=== PATIENT | male | born 1955 | race Caucasian/White ===

== ENCOUNTER 2017-05-22 13:48 | Emergency (ER) | payer BC, MEDICAID ==
--- NOTE | 2017-05-22 14:16 | ER Document Report ---
ED Medical Screen (RME) - General Chief Complaint: Weakness Stated Complaint: WEAKNESS Time Seen by Provider: 05/22/17 14:13 Notes: Patient presents from Dr. Campos's office. Dr. Campos felt that the patient was having unstable angina. Patient states he did have some mild chest pain yesterday for which he took nitroglycerin. He denies chest pain currently. He states he has had some intermittent shortness of breath. He also states he has had swelling of all extremities. Comes with a packet of information from Dr. Campos's office. Dr. Campos recommend the patient see his vacuum worker. TRAVEL OUTSIDE OF THE [place] IN LAST 30 DAYS: No - Related Data Allergies/Adverse Reactions: No Known Allergies Allergy (Unverified 05/22/17 14:03) Past Medical History Renal/ Medical History: Denies: Hx Peritoneal Dialysis Physical Exam - Vital signs Vitals: Temp Pulse Resp BP Pulse Ox 97.6 F 70 18 166/72 H 98 05/22/17 14:01 05/22/17 14:01 05/22/17 14:01 05/22/17 14:01 05/22/17 14:01 Course - Vital Signs Vital signs: Temp Pulse Resp BP Pulse Ox 97.6 F 70 18 166/72 H 98 05/22/17 14:01 05/22/17 14:01 05/22/17 14:01 05/22/17 14:01 05/22/17 14:01
[2017-05-22 15:14] LABS: APPEARANCE,URINE CLEAR; BILIRUBIN,URINE NEGATIVE (NEGATIVE); GLUCOSE, URINE >=500 mg/dL (NEGATIVE); KETONES,URINE NEGATIVE (NEGATIVE); LEUKOCYTE ESTERASE,URINE NEGATIVE (NEGATIVE); NITRITE,URINE NEGATIVE (NEGATIVE); PROTEIN,URINE NEGATIVE (NEGATIVE); URINE SPECIFIC GRAVITY 1.021; UROBILINOGEN,URINE NEGATIVE mg/dL (<2.0)
[2017-05-22 15:21] LABS: ABSOLUTE BASOPHILS # (AUTO) 0.1 10^3/uL (0.0-0.2); ABSOLUTE EOSINOPHILS # (AUTO) 0.3 10^3/uL (0.0-0.6); ABSOLUTE LYMPHOCYTES (AUTO) 1.6 10^3/uL (0.5-4.7); ABSOLUTE MONOCYTES (AUTO) 0.6 10^3/uL (0.1-1.4); ABSOLUTE NEUT (AUTO) 5.3 10^3/uL (1.7-8.2); BASOPHILS % (AUTO) 0.8 % (0-2); EOSINOPHILS % (AUTO) 3.7 % (0-6); HEMATOCRIT 42.4 % (37.9-51.0); HEMOGLOBIN 14.5 g/dL (13.5-17.0); HGB HCT DIFFERENCE 1.1; LYMPHOCYTES % (AUTO) 20.2 % (13-45); MEAN CORPUSCULAR HEMOGLOBIN 31.7 pg (27.0-33.4); MEAN CORPUSCULAR HGB CONC 34.1 g/dL (32.0-36.0); MEAN CORPUSCULAR VOLUME 93 fl (80-97); MONOCYTES % (AUTO) 7.6 % (3-13); RED BLOOD COUNT 4.57 10^6/uL (4.35-5.55); RED CELL DISTRIBUTION WIDTH 14.2 % (11.5-14.0); SEGMENTED NEUTROPHILS % (AUTO) 67.7 % (42-78); WHITE BLOOD COUNT 7.9 10^3/uL (4.0-10.5)
[2017-05-22 15:38] LABS: ALANINE AMINOTRANSFERASE 39 U/L (21-72); ALBUMIN 4.1 g/dL (3.5-5.0); ALKALINE PHOSPHATASE 106 U/L (38-126); ANION GAP 10 (5-19); ASPARTATE AMINO TRANSFERASE 32 U/L (17-59); BILIRUBIN,DIRECT 0.3 mg/dL (0.0-0.4); BILIRUBIN,TOTAL 0.8 mg/dL (0.2-1.3); BLOOD UREA NITROGEN 16 mg/dL (7-20); CALCIUM 9.7 mg/dL (8.4-10.2); CARBON DIOXIDE 28 mmol/L (22-30); CHLORIDE 103 mmol/L (98-107); CREATININE RESULT 1.24 mg/dL (0.52-1.25); GLUCOSE 343 mg/dL (75-110); POTASSIUM 4.9 mmol/L (3.6-5.0); SODIUM 140.9 mmol/L (137-145); TOTAL PROTEIN 6.8 g/dL (6.3-8.2)
--- NOTE | 2017-05-22 16:12 | RADIOLOGY REPORT (SQ) ---
EXAM DESCRIPTION: CHEST SINGLE VIEW COMPLETED DATE/TIME: 05/22/2017 4:03 pm REASON FOR STUDY: sob/cp COMPARISON: None. EXAM PARAMETERS: NUMBER OF VIEWS: One view. TECHNIQUE: Single frontal radiographic view of the chest acquired. RADIATION DOSE: NA LIMITATIONS: None. FINDINGS: LUNGS AND PLEURA: No opacities, masses or pneumothorax. No pleural effusion. MEDIASTINUM AND HILAR STRUCTURES: No masses. Contour normal. HEART AND VASCULAR STRUCTURES: Heart upper limits of normal in size. Normal vasculature. BONES: No acute findings. HARDWARE: Sternotomy wires and surgical clips. OTHER: No other significant finding. IMPRESSION: NO ACUTE RADIOGRAPHIC FINDING IN THE CHEST. TECHNICAL DOCUMENTATION: JOB ID: [id number]
--- NOTE | 2017-05-22 16:24 | EKG REPORT ---
SEVERITY:- ABNORMAL ECG - SINUS RHYTHM NONSPECIFIC T ABNORMALITIES, DIFFUSE LEADS : Confirmed by: Elli Bartholomew MD 22-May-2017 16:23:26
--- NOTE | 2017-05-22 16:28 | ER Document Report ---
ED Cardiac - General Chief Complaint: Weakness Stated Complaint: WEAKNESS Time Seen by Provider: 05/22/17 14:13 Mode of Arrival: Ambulatory Information source: Patient - TRAVEL OUTSIDE OF THE [place] IN LAST 30 DAYS: No - Related Data Allergies/Adverse Reactions: No Known Allergies Allergy (Unverified 05/22/17 14:03) Home Medications: Current Home Medications Lisinopril [Lisinopril] 5 mg PO DAILY 05/22/17 [History] Ranolazine [Ranexa] 5 PO 05/22/17 [History] Past Medical History - General Information source: Patient - , Relative - Social History Smoking Status: Never Smoker Frequency of alcohol use: None Drug Abuse: None Family History: Reviewed & Not Pertinent - Past Medical History Cardiac Medical History: Reports: Hx Heart Attack, Hx Hypercholesterolemia Endocrine Medical History: Reports: Hx Diabetes Mellitus Type 2 Renal/ Medical History: Denies: Hx Peritoneal Dialysis Psychiatric Medical History: Reports: Hx Depression Past Surgical History: Reports: Hx Appendectomy, Hx Cardiac Surgery - CABG - Immunizations Hx Diphtheria, Pertussis, Tetanus Vaccination: Yes Review of Systems - Review of Systems Constitutional: No symptoms reported EENT: No symptoms reported Cardiovascular: Chest pain - Plan of lower extremity edema and chest pain for 30 this morning resolved with 1 nitroglycerin, Edema Respiratory: No symptoms reported Gastrointestinal: No symptoms reported Genitourinary: No symptoms reported Male Genitourinary: No symptoms reported - Weakness Skin: No symptoms reported Neurological/Psychological: No symptoms reported Physical Exam - Vital signs Vitals: Temp Pulse Resp BP Pulse Ox 97.6 F 70 18 166/72 H 98 05/22/17 14:01 05/22/17 14:01 05/22/17 14:01 05/22/17 14:01 05/22/17 14:01 - General General appearance: Appears well, Alert - Respiratory Respiratory status: No respiratory distress. No: Respiratory distress Chest status: No: Accessory muscle use Breath sounds: Normal Chest palpation: Normal - Cardiovascular Rhythm: Regular Heart sounds: Normal auscultation Murmur: No Pulses: Normal: Brachial, Radial, Carotid, Femoral, Popliteal, Posterior tibial , Dorsalis pedis - Back Back: Normal, Nontender - Extremities General upper extremity: Normal inspection - With 2+ pitting edema symmetrical bilaterally no calf tenderness swelling good pulses and perfusion no acute evidence of DVT. Calf: Normal - Neurological Neuro grossly intact: Yes Cognition: Normal Course - Re-evaluation Re-evalutation: 05/22/17 16:26 Presents to the emergency department sent from his primary care physician's office with an 8 page dictated note that is very think the history of open heart surgery in 2004 and had a heart catheterization in 2016 which showed 2 patent vessels and one blockage that was managed conservatively with medical management. He is currently taking Ranexa and aspirin. His centrifugal drier operator is been more nor. Patient states he has had some lower extremity edema that he believes is due to the heat. He denies any difficulty breathing shortness of breath or history of congestive heart failure. He denies any history of kidney problems cough or upper respiratory illness. Patient states that he gets chest pain and proximal approximately 2-3 times a week at which point he takes one nitroglycerin and it is resolved he had chest pain this morning at 4:30 AM took one nitroglycerin and it resolved. He said it was unchanged in character quality frequency and duration his previous episodes. There has not been new exertional component to it he is chest pain-free since 430 this morning with the one nitroglycerin. Terms of the peripheral edema he has trace 2+ pitting edema I do not appreciate any pitting edema in the upper extremities his chest x -ray is negative his kidney function is normal his EKG is nonacute and his troponin is negative. I called his cardiology office and Lorin spoke to Dr. Gilbert's who agreed the patient to be discharged home and stated he would see him in the office at 9:00 tomorrow morning. Patient is discussed this with him and his and they are very pleased about this does not want to stay in the hospital. And we specifically discussed reasons for ED return sooner - Vital Signs Vital signs: Temp Pulse Resp BP Pulse Ox 97.6 F 70 18 166/72 H 98 05/22/17 14:01 05/22/17 14:01 05/22/17 14:01 05/22/17 14:01 05/22/17 14:01 - Laboratory Result Diagrams: 05/22/17 15:12 05/22/17 15:12 Laboratory results interpreted by me: 05/22/17 05/22/17 05/22/17 15:01 15:12 15:12 RDW 14.2 H Est GFR (Non-Af Amer) 59 L Glucose 343 H Urine Glucose (UA) >=500 H Discharge - Discharge Clinical Impression: Generalized weakness, Peripheral edema, chest pain resolved Condition: Stable Disposition: HOME, SELF-CARE Additional Instructions: Edema, Peripheral You have swelling in your legs. This is called peripheral edema. It can be caused by "leaky capillaries," inflammation, disease of the leg veins, or excess salt and water in your body. Edema may be a sign of heart, kidney, or liver disease. A medical evaluation can determine if there is a serious underlying cause for your edema. Avoid prolonged standing. If you must sit for a long time, occasionally get up and walk around or elevate your legs. Support stockings can be helpful in limiting swelling. Often diuretic or water pills are used to remove excess salt and water from your body. Call the doctor or return if you develop increased swelling, pain, or redness, shortness of breath, chest pain, or any other significant change. Chest Pain resolved Scribe experiencing chest pain 2-3 times a week which gets relieved with nitro. He had an episode of that today he reported around 430 which was relieved with one nitroglycerin you are denying any chest pain here your EKG is nonacute your cardiac enzymes are negative I spoke with your centrifugal drier operator Dr. jaffe at [place] who agrees that you can be discharged today and will see you in the office at 9:00 tomorrow morning return for increasing worsening or new symptoms
[2017-05-22 16:52] VITALS: BP 145/85
== END 2017-05-22 16:52 | disposition home or self-care (01) ==
LOC: ER 13:48
DX: R53.1 Weakness (principal); R60.0 Localized edema; R07.9 Chest pain, unspecified; I25.2 Old myocardial infarction; E11.9 Type 2 diabetes mellitus without complications; Z95.1 Presence of aortocoronary bypass graft; Z79.82 Long term (current) use of aspirin; Z79.899 Other long term (current) drug therapy
CPT/HCPCS: 36415; 71010; 80053; 81001; 84484; 85025; 93005; 93010; 99285

== ENCOUNTER 2018-05-21 07:39 | Day surgery (SDC) | payer BC, MEDICARE ==
[~2018-05-21 07:39] MED LIST: CHONDR SU A NA/HYALUR INTRAOC KIT (SURGICARE) ONE; EPINEPHRINE INJ/PF 1 MG/1 ML AMPULE ONE; KETOROLAC TROMETHAMINE 0.45% 4 DROP/0.4 ML DROPERETTE OD PRN; LIDOCAINE 1% INJ-PF (10 MG/ML) 30 ML SDV ONE
[2018-05-21] MEDS: TETRACAINE HCL 0.5% OPH SOLN 0.6 ML DROPERETTE OD PRN ×3 (08:13→08:38)
[2018-05-21] MEDS: TROPICAMIDE 1% OPH SOLN 3 ML OD PRN ×3 (08:13→08:35)
[2018-05-21] MEDS: BESIFLOXACIN HCL 0.6% OPH SUSP 5 ML BOTTLE OD PRN ×4 (08:14→09:03)
[2018-05-21] MEDS: CYCLOPENTOLATE 0.2%/PHENYLEPHRINE 1% OPH SOLN 2 ML OD PRN ×3 (08:14→08:35)
[2018-05-21] MEDS ORDERED: FENTANYL CITRATE INJ/PF 100 MCG/2 ML AMPUL ONE (08:24)
[2018-05-21] MEDS ORDERED: MIDAZOLAM 2 MG/2 ML INJ ONE (08:24)
[2018-05-21] MEDS: TOBRAMYCIN SULFATE/DEXAMETH OPH OINTMENT 3.5 GM ONE ×2 (09:03)
== END 2018-05-21 10:02 | disposition home or self-care (01) ==
LOC: SC 07:39
PROVIDERS: ATTEND Ophthalmology
DX: H25.11 Age-related nuclear cataract, right eye (principal); H40.1111 Primary open-angle glaucoma, right eye, mild stage; E11.9 Type 2 diabetes mellitus without complications; I48.91 Unspecified atrial fibrillation; I10 Essential (primary) hypertension; E78.00 Pure hypercholesterolemia, unspecified; M19.90 Unspecified osteoarthritis, unspecified site; I25.10 Atherosclerotic heart disease of native coronary artery without angina pectoris; Z79.82 Long term (current) use of aspirin; Z79.899 Other long term (current) drug therapy; Z79.01 Long term (current) use of anticoagulants; Z79.4 Long term (current) use of insulin
CPT/HCPCS: 66984; 0191T; 82962; C1783; V2630; J2250; J3490 ×3; A9270; J0171; J3010; 142

== ENCOUNTER 2018-06-04 08:34 | Day surgery (SDC) | payer BC, MEDICARE ==
[~2018-06-04 08:34] MED LIST changes: -KETOROLAC TROMETHAMINE 0.45% 4 DROP/0.4 ML DROPERETTE OD PRN; +KETOROLAC TROMETHAMINE 0.45% 4 DROP/0.4 ML DROPERETTE OS PRN; +TOBRAMYCIN SULFATE/DEXAMETH OPH OINTMENT 3.5 GM ONE
[2018-06-04] MEDS: TETRACAINE HCL 0.5% OPH SOLN 0.6 ML DROPERETTE OS PRN ×3 (09:01→09:51)
[2018-06-04] MEDS: CYCLOPENTOLATE 0.2%/PHENYLEPHRINE 1% OPH SOLN 2 ML OS PRN ×3 (09:01→09:29)
[2018-06-04] MEDS: TROPICAMIDE 1% OPH SOLN 3 ML OS PRN ×3 (09:02→09:29)
[2018-06-04] MEDS: BESIFLOXACIN HCL 0.6% OPH SUSP 5 ML BOTTLE OS PRN ×3 (09:02→09:55)
[2018-06-04] MEDS ORDERED: MIDAZOLAM 2 MG/2 ML INJ ONE ×2 (09:20→09:36)
[2018-06-04] MEDS ORDERED: INSULIN REG, HUMAN 100 UNIT/ML 3 ML VIAL (PYX) ONE (09:29)
== END 2018-06-04 10:51 | disposition home or self-care (01) ==
LOC: SC 08:34
PROVIDERS: ATTEND Ophthalmology
DX: H25.12 Age-related nuclear cataract, left eye (principal); H40.1121 Primary open-angle glaucoma, left eye, mild stage; Z98.41 Cataract extraction status, right eye; I10 Essential (primary) hypertension; M19.90 Unspecified osteoarthritis, unspecified site; Z79.01 Long term (current) use of anticoagulants; I25.2 Old myocardial infarction; Z79.4 Long term (current) use of insulin; Z79.84 Long term (current) use of oral hypoglycemic drugs; Z79.82 Long term (current) use of aspirin
CPT/HCPCS: 0191T; 66984; 142; 82962; C1783; J0171; J1815; J2250; J3490; V2630

== ENCOUNTER 2018-06-07 23:41 | Emergency (ER) | payer MEDICARE ==
[2018-06-08] MEDS ORDERED: HYDROMORPHONE HCL INJ/PF 2 MG/ML AMPULE IM ONE (00:23)
--- NOTE | 2018-06-08 00:30 | ER Document Report ---
ED General - General Chief Complaint: Leg Pain Stated Complaint: LEG PAIN Time Seen by Provider: 06/08/18 00:12 Notes: Patient is a 62 male who presents with complaint of leg pain. He says he has had pain now for close to 3 weeks. He says he has a coolness type sensation in his thighs. He has pain going into his feet. He does have a history of diabetic neuropathy for which he takes gabapentin 800 mg 3 times a day. He also has codeine at home which she occasionally takes but is not taken today. He denies any injuries. He did have recent eye surgery but the pain started well before the eye surgery began. He is on Eliquis for atrial fibrillation. Has seen orthopedist to performed x-ray of his legs. He says he has been scheduled for a vascular ultrasound of his legs. No recent fevers or infections. He does take atorvastatin which has been on for a long period time. No new medications. Trauma or injury to his legs. No pain from his back. TRAVEL OUTSIDE OF THE [place] IN LAST 30 DAYS: No - Related Data Allergies/Adverse Reactions: No Known Allergies Allergy (Unverified 06/04/18 08:53) Past Medical History - Social History Smoking Status: Never Smoker Frequency of alcohol use: None Drug Abuse: None Family History: Reviewed & Not Pertinent - Past Medical History Cardiac Medical History: Reports: Hx Heart Attack - JUN 2017-ABLATION, Hx Hypercholesterolemia, Hx Hypertension Pulmonary Medical History: Denies: Hx Asthma Neurological Medical History: Denies: Hx Cerebrovascular Accident, Hx Seizures Endocrine Medical History: Reports: Hx Diabetes Mellitus Type 2 Renal/ Medical History: Denies: Hx Peritoneal Dialysis GI Medical History: Reports: Hx Ulcer - NOT SURE. Denies: Hx Hepatitis, Hx Hiatal Hernia Psychiatric Medical History: Reports: Hx Depression Infectious Medical History: Denies: Hx Hepatitis Past Surgical History: Reports: Hx Appendectomy, Hx Cardiac Surgery - CABG, Hx Open Heart Surgery - 2004. Denies: Hx Pacemaker - Immunizations Hx Diphtheria, Pertussis, Tetanus Vaccination: Yes Review of Systems - Review of Systems Notes: My Normal Review Basic REVIEW OF SYSTEMS: CONSTITUTIONAL : Denies fever, chills, or sweats. Denies recent illness. RESPIRATORY: Denies cough, cold, or chest congestion. Denies shortness of breath, difficulty breathing, or wheezing. GASTROINTESTINAL: Denies abdominal pain. Denies nausea, vomiting, or diarrhea. MUSCULOSKELETAL: Bilateral leg pain SKIN: Denies rash or skin lesions. NEUROLOGICAL: Denies altered mental status or loss of consciousness. Denies headache. Denies weakness or paralysis or loss of use of either side. Denies problems with gait or speech. Denies sensory or motor loss. ALL OTHER SYSTEMS REVIEWED AND NEGATIVE. Physical Exam - Vital signs Vitals: Temp Pulse Resp BP Pulse Ox 97.5 F 102 H 20 166/88 H 99 06/07/18 23:49 06/07/18 23:49 06/07/18 23:49 06/07/18 23:49 06/07/18 23:49 - Notes Notes: General Appearance: Well nourished, alert, cooperative, no acute distress, moderate obvious discomfort. Vitals: reviewed, See vital signs table. Extremities: strength 5/5 in all extremities, good pulses in all extremities, some tenderness palpation over the thigh muscles. Did a quick bedside ultrasound and confirmed the patient does have dopplerable flow in both feet over the dorsalis pedis and posterior tibial pulses. Patient has good capillary refill in both feet. Skin: warm, dry, appropriate color, no rash Neuro: speech clear, oriented x 3, normal affect, responds appropriately to questions. Course - Re-evaluation Re-evalutation: 06/08/18 02:13 I suspect patient's leg pain is due to 1 of 2 causes. He could be diabetic neuropathy being that the patient does not control sugars well. His blood sugar was 401 today. I want to give him insulin with the patient refused and said he would take insulin when he gets home. His does mention that sugars usually run fairly high that he is not very compliant. I talked to patient length informed him that his neuropathy will only get worse this pain will get worse if he continues to not control his blood sugars. Second potential cause the patient is on a statin medication. I will have him hold his atorvastatin for 1 week. If his pain improves then he is to continue hold it and speak with his physician about trying a different cholesterol medication. Patient is five- point with his orthopedic doctor. He is scheduled for an ultrasound. At this time I see no evidence of severe arterial insufficiency of the patient's good capillary refill and I was able to see color flow with bedside ultrasound Doppler. Also I do not think arterial insufficiency would be causing pain into the thigh muscles themselves. Patient describes the pain more as a burning type pain which would go along more with neuropathy or muscular pain from the atorvastatin. Patient to return to ER if he has worsening elevated blood sugars , fevers, redness or swelling to his legs, or if he feels unwell. Patient agrees with plan and will will be discharged home. Dictation of this chart was performed using voice recognition software; therefore, there may be some unintended grammatical errors. - Vital Signs Vital signs: Temp Pulse Resp BP Pulse Ox 97.5 F 102 H 20 166/88 H 99 06/07/18 23:49 06/07/18 23:49 06/07/18 23:49 06/07/18 23:49 06/07/18 23:49 - Laboratory Result Diagrams: 06/08/18 00:46 Laboratory results interpreted by me: 06/08/18 00:46 Glucose 401 H* Discharge - Discharge Clinical Impression: Leg pain Qualifiers: Laterality: bilateral Qualified Code(s): M79.604 - Pain in right leg; M79.605 - Pain in left leg; M79.605 - Pain in left leg Condition: Good Disposition: HOME, SELF-CARE Additional Instructions: Please stop taking the Atorvastatin for 1 week. If you pain improves with holding the Atorvastatin than it is likely this medication that is causing your pain. If your pain does improve than discuss with your doctor an alternative medication to take in its place to help control your cholesterol. Please keep better control of your blood sugars as your pain could also be related to worsening diabetic neuropathy from uncontrolled blood sugars. Return to the ER immediately if you develop any redness or swelling to your legs. Please follow up with your doctor in 3-4 days.
[2018-06-08 01:36] LABS: ANION GAP 11 (5-19); BLOOD UREA NITROGEN 17 mg/dL (7-20); CALCIUM 9.9 mg/dL (8.4-10.2); CARBON DIOXIDE 27 mmol/L (22-30); CHLORIDE 103 mmol/L (98-107); CREATINE KINASE 66 U/L (55-170); POTASSIUM 4.3 mmol/L (3.6-5.0); SODIUM 140.9 mmol/L (137-145)
[2018-06-08 01:55] LABS: GLUCOSE 401 mg/dL (75-110)
[2018-06-08] MEDS ORDERED: INSULIN REG, HUMAN 100 UNIT/ML 3 ML VIAL (PYX) SUBCUT ONE ×2 (02:02→02:30)
[2018-06-08 02:27] VITALS: BP 151/87
== END 2018-06-08 02:29 | disposition home or self-care (01) ==
LOC: ER 23:41
DX: E11.40 Type 2 diabetes mellitus with diabetic neuropathy, unspecified (principal); Z79.4 Long term (current) use of insulin; M79.604 Pain in right leg; M79.605 Pain in left leg; Z98.890 Other specified postprocedural states; I25.2 Old myocardial infarction; I10 Essential (primary) hypertension; E78.00 Pure hypercholesterolemia, unspecified; Z79.899 Other long term (current) drug therapy
CPT/HCPCS: 99283; 96372; 36415; 82550; 83735; 80048; J1170; A9270; J1815

== ENCOUNTER → 2018-07-05 | Outpatient (CLI) | payer MEDICARE ==
--- NOTE | 2018-07-06 15:43 | RADIOLOGY REPORT (SQ) ---
EXAM DESCRIPTION: MRI LUMBAR SPINE WITHOUT COMPLETED DATE/TIME: 07/05/2018 1:40 pm REASON FOR STUDY: LUMBAR RADICULOPATHY M54.16 RADICULOPATHY, LUMBAR REGION COMPARISON: None. TECHNIQUE: Sagittal and Axial imaging includes T1, T2, STIR and gradient echo sequences. Coronal T2/ HASTE imaging. LIMITATIONS: Patient motion. FINDINGS: VISUALIZED UPPER ABDOMEN: Limited evaluation. No acute or suspicious findings suggested. SEGMENTATION: No transitional anatomy. The lowest well-developed disc space is labeled L5-S1. ALIGNMENT: Anatomic. VERTEBRAE: Intact. BONE MARROW: Normal. No marrow replacement or reactive changes. DISC SIGNAL: Desiccation multiple levels. POSTERIOR ELEMENTS: Generally intact. No pars defect evident. HARDWARE: None in the spine. CORD AND CONUS: Normal in size and signal intensity. Conus at the appropriate level. SOFT TISSUES: No aortic aneurysm seen. No bulky retroperitoneal adenopathy or mass. No paraspinal mas s or fluid. L1-L2: No significant spinal stenosis or exit foraminal stenosis. L2-L3: No significant spinal stenosis or exit foraminal stenosis. L3-L4: Disc bulge and facet arthropathy. Minimal narrowing of the spinal canal. L4-L5: Disc bulge and facet arthropathy. Mild spinal stenosis. L5-S1: Disc bulge and facet arthropathy. Mild spinal stenosis. LOWER THORACIC: Incompletely imaged. No stenosis seen. SACRUM: Visualized upper sacrum intact. OTHER: No other significant findings. IMPRESSION: Spondylosis and facet arthropathy. Mild spinal stenosis L4-5 and L5-S1. TECHNICAL DOCUMENTATION: JOB ID: [id number] [employer]- All Rights Reserved Reading location - IP/workstation name: [email or web address]
== END ==
LOC: RAD 12:45
PROVIDERS: ATTEND Physician Assistant
DX: M54.16 Radiculopathy, lumbar region (principal); M47.896 Other spondylosis, lumbar region
CPT/HCPCS: 72148

== ENCOUNTER 2018-07-19 18:48 | Inpatient (IN) | payer MEDICARE ==
[2018-07-19] MEDS ORDERED: RINGERS SOLUTION,LACTATED 1,000 ML IV ONE (19:12)
[2018-07-19 19:25] LABS: ABSOLUTE BASOPHILS # (AUTO) 0.1 10^3/uL (0.0-0.2); ABSOLUTE EOSINOPHILS # (AUTO) 0.1 10^3/uL (0.0-0.6); ABSOLUTE LYMPHOCYTES (AUTO) 2.3 10^3/uL (0.5-4.7); ABSOLUTE MONOCYTES (AUTO) 0.8 10^3/uL (0.1-1.4); ABSOLUTE NEUT (AUTO) 6.2 10^3/uL (1.7-8.2); BASOPHILS % (AUTO) 1.1 % (0-2); HEMATOCRIT 46.2 % (37.9-51.0); LYMPHOCYTES % (AUTO) 24.5 % (13-45); MEAN CORPUSCULAR HEMOGLOBIN 31.5 pg (27.0-33.4); MEAN CORPUSCULAR HGB CONC 34.6 g/dL (32.0-36.0); MEAN CORPUSCULAR VOLUME 91 fl (80-97); MONOCYTES % (AUTO) 8.6 % (3-13); PLATELET COUNT 273 10^3/uL (150-450); RED BLOOD COUNT 5.08 10^6/uL (4.35-5.55); RED CELL DISTRIBUTION WIDTH 12.6 % (11.5-14.0); SEGMENTED NEUTROPHILS % (AUTO) 64.8 % (42-78); TOTAL CELLS COUNTED % (AUTO) 100 %; WHITE BLOOD COUNT 9.5 10^3/uL (4.0-10.5)
--- NOTE | 2018-07-19 19:39 | ER Document Report ---
ED General - General Chief Complaint: High Blood Sugar Stated Complaint: BLOOD SUGAR ISSUE, LEG SWELLING Time Seen by Provider: 07/19/18 19:12 Notes: Patient is a 62-year-old male who presents with lightheadedness, weakness and near syncope. The patient himself is unable to provide meaningful history at time of arrival due to being hypotensive and somewhat lethargic. Family reports that the patient has been effectively bed and/or chair bound "for years " they report that he has not been eating or drinking hardly anything over the last several days. They state they became concerned today because he appeared very tired, pale and disoriented. History is otherwise limited secondary to the patient's vitals at time of presentation. TRAVEL OUTSIDE OF THE [place] IN LAST 30 DAYS: No - Related Data Allergies/Adverse Reactions: No Known Allergies Allergy (Verified 07/19/18 18:51) Past Medical History - General Information source: Relative - Social History Smoking Status: Never Smoker Frequency of alcohol use: None Drug Abuse: None Lives with: Family Family History: Reviewed & Not Pertinent Patient has suicidal ideation: No Patient has homicidal ideation: No - Past Medical History Cardiac Medical History: Reports: Hx Heart Attack - JUN 2017-ABLATION, Hx Hypercholesterolemia, Hx Hypertension Pulmonary Medical History: Denies: Hx Asthma Neurological Medical History: Denies: Hx Cerebrovascular Accident, Hx Seizures Endocrine Medical History: Reports: Hx Diabetes Mellitus Type 2 Renal/ Medical History: Denies: Hx Peritoneal Dialysis GI Medical History: Reports: Hx Ulcer - NOT SURE. Denies: Hx Hepatitis, Hx Hiatal Hernia Psychiatric Medical History: Reports: Hx Depression Infectious Medical History: Denies: Hx Hepatitis Past Surgical History: Reports: Hx Appendectomy, Hx Cardiac Surgery - CABG, Hx Open Heart Surgery - 2004. Denies: Hx Pacemaker - Immunizations Hx Diphtheria, Pertussis, Tetanus Vaccination: Yes Review of Systems - Review of Systems -: Yes ROS unobtainable due to patient's medical condition Physical Exam - Vital signs Vitals: Pulse Resp BP Pulse Ox 85 32 H 69/37 L 96 07/19/18 19:00 07/19/18 19:00 07/19/18 19:00 07/19/18 19:00 Interpretation: Hypotensive Notes: PHYSICAL EXAMINATION: GENERAL: Pale, somewhat lethargic but in no acute distress HEAD: Atraumatic, normocephalic. EYES: Pupils equal round and reactive to light, extraocular movements intact, sclera anicteric, conjunctiva are normal. ENT: nares patent, oropharynx clear without exudates. Dry mucous membranes. NECK: Normal range of motion, supple without lymphadenopathy LUNGS: Breath sounds clear to auscultation bilaterally and equal. No wheezes rales or rhonchi. HEART: Regular rate and rhythm without murmurs Rectal: Stage I pressure ulcer at the level of the sacrum. No gross blood. ABDOMEN: Soft, nontender, normoactive bowel sounds. No guarding, no rebound. No masses appreciated. EXTREMITIES: Normal range of motion, no pitting or edema. No cyanosis. NEUROLOGICAL: No focal neurological deficits. Moves all extremities spontaneously and on command. PSYCH: Somewhat lethargic, oriented 3 SKIN: Cool, pale skin Course - Re-evaluation Re-evalutation: 07/19/18 19:37 Patient presents hypotensive, near syncopal, apparently has not been eating or drinking at home. Does not take his medications. Family relates a history of severe depression and effectively failure to thrive. Initially patient was very hypotensive, lethargic although this improved quite rapidly after lying down in the bed and receiving IV fluids. The patient's blood pressure normalized quite rapidly after receiving about 200 cc of lactated Ringer's. Although the patient appeared quite pale, his blood count is noted to be normal and stool does not appear to be melanotic or have any evidence of bright red blood. He does have a stage I pressure ulcer at his sacrum but does not appear infected. The patient denies any chest pain or shortness of breath. His vitals at the time of my second assessment or a heart rate of 72, blood pressure of 111 and 71, saturating 97% on room air, no distress. Awaiting additional laboratories, chest x-ray, and will continue to monitor closely. 07/19/18 20:20 Patient's vitals remain within normal limits at this time. His laboratories have returned showing an acute kidney injury as well as an elevated blood lactate likely secondary to his hypotension prior to initial assessment. Awaiting chest x-ray read. I do not suspect sepsis at this point. Will discuss with the hospitalist for admission. 07/19/18 22:33 - Vital Signs Vital signs: Temp Pulse Resp BP Pulse Ox 85 21 H 111/71 100 07/19/18 19:00 07/19/18 19:30 07/19/18 19:30 07/19/18 19:30 - Laboratory Result Diagrams: 07/19/18 19:15 07/19/18 19:15 Laboratory results interpreted by me: 07/19/18 07/19/18 07/19/18 19:00 19:15 19:45 VBG pH VBG pCO2 Creatinine 1.46 H Est GFR ( Amer) 59 L Est GFR (Non-Af Amer) 49 L Glucose 164 H Lactic Acid 4.7 H Calcium 10.3 H Urine Glucose (UA) >=500 H 07/19/18 19:45 VBG pH 7.24 L VBG pCO2 68.9 H* Creatinine Est GFR ( Amer) Est GFR (Non-Af Amer) Glucose Lactic Acid Calcium Urine Glucose (UA) - Diagnostic Test Radiology reviewed: Image reviewed, Reports reviewed Radiology results interpreted by me: 07/19/18 22:34 Chest x-ray: No acute infiltrate or pneumothorax - EKG Interpretation by Me Additional EKG results interpreted by me: 07/19/18 22:36 Sinus rhythm. Rate 82. No ST elevations or depressions. QTC is 453. Discharge - Discharge Clinical Impression: Near syncope, Lactic acid increased, Dehydration Hypotension Qualifiers: Hypotension type: unspecified hypotension type Qualified Code(s): I95.9 - Hypotension, unspecified Condition: Fair Disposition: ADMITTED OBSERVATION Admitting Provider: Hospitalist Unit Admitted: Telemetry Referrals: PAUL EPPERSON PA-C [PHYSICIAN IN [employer] REPAIRER] - Follow up as needed
[2018-07-19 19:45] LABS: ALANINE AMINOTRANSFERASE 42 U/L (21-72); ALBUMIN 4.3 g/dL (3.5-5.0); ALKALINE PHOSPHATASE 116 U/L (38-126); ANION GAP 14 (5-19); ASPARTATE AMINO TRANSFERASE 46 U/L (17-59); BILIRUBIN,DIRECT 0.4 mg/dL (0.0-0.4); BILIRUBIN,TOTAL 0.6 mg/dL (0.2-1.3); BLOOD UREA NITROGEN 19 mg/dL (7-20); CALCIUM 10.3 mg/dL (8.4-10.2); CARBON DIOXIDE 29 mmol/L (22-30); CHLORIDE 98 mmol/L (98-107); CREATINE KINASE 135 U/L (55-170); GLUCOSE 164 mg/dL (75-110); POTASSIUM 4.1 mmol/L (3.6-5.0); TOTAL PROTEIN 7.4 g/dL (6.3-8.2)
[2018-07-19 19:57] LABS: VENOUS BLOOD BASE EXCESS -0.1 mmol/L; VENOUS BLOOD HCO3 29.1 mmol/L (20-32); VENOUS BLOOD PH 7.24 (7.30-7.42)
[2018-07-19 19:59] LABS: VENOUS BLOOD PCO2 68.9 mmHg (35-63)
[2018-07-19 20:00] LABS: APPEARANCE,URINE CLEAR; BILIRUBIN,URINE NEGATIVE (NEGATIVE); COLOR,URINE YELLOW; GLUCOSE, URINE >=500 mg/dL (NEGATIVE); KETONES,URINE NEGATIVE (NEGATIVE); LEUKOCYTE ESTERASE,URINE NEGATIVE (NEGATIVE); NITRITE,URINE NEGATIVE (NEGATIVE); PROTEIN,URINE NEGATIVE (NEGATIVE); URINE SPECIFIC GRAVITY 1.027; UROBILINOGEN,URINE NEGATIVE mg/dL (<2.0)
--- NOTE | 2018-07-19 20:05 | EKG REPORT ---
SEVERITY:- ABNORMAL ECG - SINUS RHYTHM NONSPECIFIC T ABNORMALITIES, ANT-LAT LEADS : Confirmed by: Elli Bartholomew MD 19-Jul-2018 20:05:32
--- NOTE | 2018-07-19 20:24 | RADIOLOGY REPORT (SQ) ---
EXAM DESCRIPTION: CHEST SINGLE VIEW COMPLETED DATE/TIME: 07/19/2018 7:38 pm REASON FOR STUDY: sob COMPARISON: 05/22/2017. EXAM PARAMETERS: NUMBER OF VIEWS: One view. TECHNIQUE: Single frontal radiographic view of the chest acquired. RADIATION DOSE: NA LIMITATIONS: None. FINDINGS: LUNGS AND PLEURA: No opacities, masses or pneumothorax. No pleural effusion. MEDIASTINUM AND HILAR STRUCTURES: No masses. Contour normal. HEART AND VASCULAR STRUCTURES: Heart normal in size. Normal vasculature. BONES: No acute findings. HARDWARE: Sternotomy wires and surgical clips. OTHER: No other significant finding. IMPRESSION: NO ACUTE RADIOGRAPHIC FINDING IN THE CHEST. TECHNICAL DOCUMENTATION: JOB ID: [id number] [employer]- All Rights Reserved Reading location - IP/workstation name: [email or web address]
[2018-07-19] MEDS ORDERED: ACETAMINOPHEN 325 MG TABLET PO ONE (20:43)
[2018-07-19 20:50] LABS: VENOUS BLOOD BASE EXCESS 3.4 mmol/L; VENOUS BLOOD PCO2 61.2 mmHg (35-63); VENOUS BLOOD PH 7.32 (7.30-7.42)
[2018-07-19] MEDS ORDERED: NORMAL SALINE 1000 ML 1,000 ML IV PRN (22:28)
[2018-07-19] MEDS ORDERED: MAG HYDROX/AL HYDROX/SIMETH SUSP 30 ML UDCUP PO PRN (22:28)
[2018-07-19] MEDS ORDERED: ACETAMINOPHEN 650 MG SUPP.RECT PR PRN (22:28)
[2018-07-19] MEDS ORDERED: PROMETHAZINE HCL INJ 25 MG/1 ML VIAL IV PRN (22:28)
[2018-07-19] MEDS ORDERED: PROMETHAZINE HCL 25 MG SUPP.RECT PR PRN (22:28)
[2018-07-19] MEDS ORDERED: GLUCAGON,HUMAN RECOMB 1 MG INJ IM PRN (22:40)
[2018-07-19] MEDS ORDERED: DEXTROSE 40% GEL 15 GM TUBE PO PRN ×2 (22:40)
[2018-07-19] MEDS ORDERED: DEXTROSE 50%-WATER 25 GM/50 ML DISP.SYRIN IV PRN ×2 (22:40)
[2018-07-19] MEDS ORDERED: IPRATROPIUM/ALBUTEROL 0.5-2.5 MG/3 ML AMPUL NEB ONE (23:00)
[2018-07-19] MEDS ORDERED: APIXABAN 5 MG TABLET PO ONE (23:00)
[2018-07-19 23:26] LABS: INTERNATIONAL RATION (INR) 0.98; PROTHROMBIN TIME 13.5 SEC (11.4-15.4)
[2018-07-20] MEDS ORDERED: NITROGLYCERIN 0.4 MG/TAB 25 TAB/BOTTLE SL PRN (01:57)
--- NOTE | 2018-07-20 02:29 | PDOC H&P ---
History of Present Illness Admission Date/PCP: 07/19/18 22:35 RUBI VENEGAS Patient complains of: High blood sugar History of Present Illness: AZIZA MERCHANT is a 62 year old male who has been declining for the last year. Upon arrival to the emergency department lethargic and could not provide any meaningful history, he is brother is the audio visual secretary in the ED and is the one providing me most of the history. Yesterday patient was feeling very dizzy, lightheaded, started with nausea and gagging but no vomiting, has been more unsteady than his usual, very pale, apparently patient checked his blood sugar earlier and was reading high, means more than 500, he gave himself 36 units of NovoLog, upon arrival to our facility his blood sugar was in 164. Patient seems to be very dehydrated. [facility] very [facility]zy and short of breath, oxygen saturation was 79%, was initiated on oxygen via nasal cannula and is rapidly improved. Initial vBG shows 7.24/68, by the time I evaluated the patient he was at his baseline mental status and repeated vBG shows a PCO2 improved to 61. Initial blood pressure 69/37 which rapidly improved after 1 L of IV fluids to 111/71 Has stage I pressure ulcer in his sacrum which does not appear to be infected, patient has been progressively decrease his ambulation and currently is almost bedbound/wheelchair bound, multiple test has been ordered by his PCP. EKG 82 bpm, no acute ST elevation or ST depressions. Chest x-ray unremarkable. Past Medical History Cardiac Medical History: Reports: Congestive Heart Failure - Unknown if systolic or diastolic, Myocardial Infarction - JUN 2017-ABLATION in [place], Hyperlipidema, Hypertension Endocrine Medical History: Reports: Diabetes Mellitus Type 2 Psychiatric Medical History: Reports: Depression, General Anxiety Disorder Past Surgical History Past Surgical History: Reports: Appendectomy, Coronary Artery Bypass Graft - CABG 3 in 2004 Social History Information Source: Patient, Relative Lives with: Family Smoking Status: Former Smoker - Quit smoking 40 years ago Frequency of Alcohol Use: None Hx Recreational Drug Use: No Hx Prescription Drug Abuse: No Family History Family History: Reviewed & Not Pertinent Family History: On with history of [place], father with history of lung cancer, mother with history of metastatic breast cancer Parental Family History Reviewed: Yes - As above Children Family History Reviewed: NA Sibling(s) Family History Reviewed.: NA Medication/Allergy Home Medications: Apixaban [Eliquis 5 mg Tablet] 5 mg PO BID 05/21/18 Aspirin [Aspirin EC] 81 mg PO DAILY 05/21/18 Atorvastatin Calcium 40 mg PO DAILY 05/21/18 Bisoprolol Fumarate [Zebeta 5 mg Tablet] 1 tab PO BID 05/21/18 Duloxetine HCl 30 mg PO DAILY 05/21/18 Furosemide [Lasix 40 mg Tablet] 20 mg PO QAM 05/21/18 Gabapentin 800 mg PO TID 05/21/18 Hydrocodone Bit/Acetaminophen [Hydrocodon-Acetaminophen 5-325] 1 each PO PRN PRN 05/21/18 Insulin Aspart [Novolog Flexpen] 0 unit SUBCUT .SLD SCALE 05/21/18 Insulin Detemir [Levemir Flextouch] 66 unit SQ DAILY 05/21/18 Liraglutide [Victoza 2-Jalil] 1.8 mg SQ DAILY 05/21/18 Magnesium Oxide [Mag-Ox 400 mg Tablet] 400 mg PO DAILY 05/21/18 Nitroglycerin [Nitrostat] 0.4 mg SL PRN PRN 05/21/18 Sacubitril/Valsartan [Entresto 49 mg/51 mg Tablet] 1 tab PO DAILY 05/21/18 Tamsulosin HCl 0.4 mg PO DAILY 05/21/18 Tizanidine HCl [Zanaflex] 4 mg PO TID 05/21/18 Allergies/Adverse Reactions: No Known Allergies Allergy (Verified 07/19/18 18:51) Review of Systems Review of Systems: As outlined above, others negative Physical Exam Vital Signs: Temp Pulse Resp BP Pulse Ox 85 21 H 111/71 100 07/19/18 19:00 07/19/18 19:30 07/19/18 19:30 07/19/18 19:30 Additional comments: General appearance: Well-developed, obese, alert and cooperative, and appears to be in no acute distress, wearing a nasal cannula Head: Normocephalic Eyes: PEERL, EOMI, vision is grossly intact. Ears: External auditory canal and tympanic membranes clear, hearing grossly intact. Nose: No nasal discharge. Throat: Oral cavity and pharynx dry. No inflammation, swelling, exudate or lesions. Neck: Neck supple, nontender without lymphadenopathy, masses or thyromegaly. Cardiac: Normal S1 and S2. No S3, S4 or murmurs. Rhythm is regular. There is no peripheral edema, cyanosis or pallor. Extremities are warm and well perfused. Capillary refill is less than 2 seconds. No carotid bruits. Lungs: Clear to auscultation and percussion without rales, rhonchi, wheezing or diminished breath sounds. Not using accessory muscles. Abdomen: Positive bowel sounds. Soft. Nondistended, nontender. No guarding or rebound. No masses. No hepatosplenomegaly Extremities: No significant deformity or joint abnormality. No edema. Peripheral pulses intact. No varicosities. Neurological: Cranial nerves II through XII grossly intact. Strength and sensation symmetric and intact throughout. Reflexes 2+ throughout. Skin: Stage I noninfected sacral ulcer, warm and dry. Psychiatric: The mental examination revealed the patient was oriented to person , place, and time. The patient was able to demonstrate good judgment on recent , without hallucinations, abnormal affect or abnormal behaviors. Results Laboratory Results: 07/19/18 23:05 Lactic Acid 3.6 H 07/19/18 23:07 Troponin I < 0.012 07/19/18 07/19/18 07/19/18 19:00 19:15 19:15 WBC 9.5 RBC 5.08 Hgb 16.0 Hct 46.2 MCV 91 MCH 31.5 MCHC 34.6 RDW 12.6 Plt Count 273 Seg Neutrophils % 64.8 Lymphocytes % 24.5 Monocytes % 8.6 Eosinophils % 1.0 Basophils % 1.1 Absolute Neutrophils 6.2 Absolute Lymphocytes 2.3 Absolute Monocytes 0.8 Absolute Eosinophils 0.1 Absolute Basophils 0.1 PT INR VBG pH VBG pCO2 VBG HCO3 VBG Base Excess Sodium 141.0 Potassium 4.1 Chloride 98 Carbon Dioxide 29 Anion Gap 14 BUN 19 Creatinine 1.46 H Est GFR ( Amer) 59 L Est GFR (Non-Af Amer) 49 L Glucose 164 H POC Glucose Lactic Acid Calcium 10.3 H Total Bilirubin 0.6 Direct Bilirubin 0.4 AST 46 ALT 42 Alkaline Phosphatase 116 Creatine Kinase 135 Troponin I Total Protein 7.4 Albumin 4.3 Urine Color YELLOW Urine Appearance CLEAR Urine pH 5.0 Ur Specific [place] 1.027 Urine Protein NEGATIVE Urine Glucose (UA) >=500 H Urine Ketones NEGATIVE Urine Blood NEGATIVE Urine Nitrite NEGATIVE Urine Bilirubin NEGATIVE Urine Urobilinogen NEGATIVE Ur Leukocyte Esterase NEGATIVE Urine WBC (Auto) 0 Urine RBC (Auto) 0 Squamous Epi Cells Auto <1 Urine Mucus (Auto) RARE Urine Ascorbic Acid NEGATIVE Stool Occult Blood 07/19/18 07/19/18 07/19/18 19:15 19:36 19:45 WBC RBC Hgb Hct MCV MCH MCHC RDW Plt Count Seg Neutrophils % Lymphocytes % Monocytes % Eosinophils % Basophils % Absolute Neutrophils Absolute Lymphocytes Absolute Monocytes Absolute Eosinophils Absolute Basophils PT INR VBG pH VBG pCO2 VBG HCO3 VBG Base Excess Sodium Potassium Chloride Carbon Dioxide Anion Gap BUN Creatinine Est GFR ( Amer) Est GFR (Non-Af Amer) Glucose POC Glucose Lactic Acid 4.7 H Calcium Total Bilirubin Direct Bilirubin AST ALT Alkaline Phosphatase Creatine Kinase Troponin I < 0.012 Total Protein Albumin Urine Color Urine Appearance Urine pH Ur Specific [place] Urine Protein Urine Glucose (UA) Urine Ketones Urine Blood Urine Nitrite Urine Bilirubin Urine Urobilinogen Ur Leukocyte Esterase Urine WBC (Auto) Urine RBC (Auto) Squamous Epi Cells Auto Urine Mucus (Auto) Urine Ascorbic Acid Stool Occult Blood NEGATIVE 07/19/18 07/19/18 07/19/18 19:45 20:30 23:05 WBC RBC Hgb Hct MCV MCH MCHC RDW Plt Count Seg Neutrophils % Lymphocytes % Monocytes % Eosinophils % Basophils % Absolute Neutrophils Absolute Lymphocytes Absolute Monocytes Absolute Eosinophils Absolute Basophils PT INR VBG pH 7.24 L 7.32 VBG pCO2 68.9 H* 61.2 VBG HCO3 29.1 31.0 VBG Base Excess -0.1 3.4 Sodium Potassium Chloride Carbon Dioxide Anion Gap BUN Creatinine Est GFR ( Amer) Est GFR (Non-Af Amer) Glucose POC Glucose Lactic Acid 3.6 H Calcium Total Bilirubin Direct Bilirubin AST ALT Alkaline Phosphatase Creatine Kinase Troponin I Total Protein Albumin Urine Color Urine Appearance Urine pH Ur Specific [place] Urine Protein Urine Glucose (UA) Urine Ketones Urine Blood Urine Nitrite Urine Bilirubin Urine Urobilinogen Ur Leukocyte Esterase Urine WBC (Auto) Urine RBC (Auto) Squamous Epi Cells Auto Urine Mucus (Auto) Urine Ascorbic Acid Stool Occult Blood 07/19/18 07/19/18 07/19/18 23:07 23:08 23:39 WBC RBC Hgb Hct MCV MCH MCHC RDW Plt Count Seg Neutrophils % Lymphocytes % Monocytes % Eosinophils % Basophils % Absolute Neutrophils Absolute Lymphocytes Absolute Monocytes Absolute Eosinophils Absolute Basophils PT 13.5 INR 0.98 VBG pH VBG pCO2 VBG HCO3 VBG Base Excess Sodium Potassium Chloride Carbon Dioxide Anion Gap BUN Creatinine Est GFR ( Amer) Est GFR (Non-Af Amer) Glucose POC Glucose 111 H Lactic Acid Calcium Total Bilirubin Direct Bilirubin AST ALT Alkaline Phosphatase Creatine Kinase Troponin I < 0.012 Total Protein Albumin Urine Color Urine Appearance Urine pH Ur Specific [place] Urine Protein Urine Glucose (UA) Urine Ketones Urine Blood Urine Nitrite Urine Bilirubin Urine Urobilinogen Ur Leukocyte Esterase Urine WBC (Auto) Urine RBC (Auto) Squamous Epi Cells Auto Urine Mucus (Auto) Urine Ascorbic Acid Stool Occult Blood Impressions: Chest X-Ray 07/19/18 19:13 IMPRESSION: NO ACUTE RADIOGRAPHIC FINDING IN THE CHEST. Assessment & Plan - Diagnosis (1) Acute renal failure (ARF) Qualifiers: Acute renal failure type: unspecified Qualified Code(s): N17.9 - Acute kidney failure, unspecified Is this a current diagnosis for this admission?: Yes Plan: Patient comes in with multiple symptomatology, likely severe dehydration secondary to his decondition, depression with possible failure to thrive worsening for the last few weeks. BUN 19 and creatinine 1.46, probably from an normal baseline. Patient has been receiving IV fluids in the emergency department and I will continue with fluids and reassessment of renal function in the morning. On hold Sacubitril, losartan and Lasix. Avoid nephrotoxic drugs. Orthostatic vital signs requested. (2) Hypercapnia Is this a current diagnosis for this admission?: Yes Plan: Transient hypercapnia in the emergency department secondary to transient respiratory distress, initial VBG with a CO2 of 68.9, after patient was placed on oxygen and given some fluids his CO2 went down to 61 which is probably close to his baseline as his pH is 7.32. We will continue with oxygen protocol via nasal cannula, the patient is at his baseline and no respiratory distress. (3) Lactic acid increased Is this a current diagnosis for this admission?: Yes Plan: Lactic acid 4.7, repeated 3.6, improving with IV fluids, doubt sepsis (4) CAD (coronary artery disease) Is this a current diagnosis for this admission?: Yes Plan: Patient has history of CABG 3 in 2004 and myocardial infarction in June 2018. So far to cardiac markers negative, will request one more. Echocardiogram requested. Patient does not have any cardiac symptomatology at this point. (5) Diabetes mellitus type 2 in obese Is this a current diagnosis for this admission?: Yes Plan: Hyperglycemia earlier with blood sugar more than 600, patient probably overcorrected at home with 30 units of NovoLog, when the patient arrived to our facility his blood sugar was 164, probably do this big drop in the blood sugar has allowed to do with his symptomatology. He will be on Accu-Cheks every 4 hours, insulin lispro sliding scale, hypoglycemia protocol. (6) Physical deconditioning Is this a current diagnosis for this admission?: Yes Plan: For the last year the patient has been deconditioning, now is most of the time bedbound, he is able to walk with a walker very few steps. Has been doing a recent MRI of the lumbar spine, pending results in a different facility. I am requesting physical therapy evaluation. Fall precautions. (7) CHF (congestive heart failure) Is this a current diagnosis for this admission?: Yes Plan: Unknown if systolic or diastolic, patient is on Lasix at home currently on hold as we are hydrating the patient. I am requesting an echocardiogram. Cardiology Dr. Rm (8) Chronic anticoagulation Is this a current diagnosis for this admission?: Yes Plan: Unknown the reason for anticoagulation but patient is on Eliquis, suspected A. fib. (9) Sacral decubitus ulcer Qualifiers: Pressure injury stage: stage 1 Qualified Code(s): L89.151 - Pressure ulcer of sacral region, stage 1 Is this a current diagnosis for this admission?: Yes Plan: Seems to be a stage I, secondary to the patient deconditioning and inability to walk. I will request Mepilex. - Time Time Spent: 30 to 50 Minutes - Inpatient Certification Based on my medical assessment, after consideration of the patient's comorbidities, presenting symptoms, or acuity I expect that the services needed warrant INPATIENT care.: Yes I certify that my determination is in accordance with my understanding of Medicare's requirements for reasonable and necessary INPATIENT services [42 CFR 412.3e].: Yes Medical Necessity: Risk of Complication if Not Cared For in Hospital
[2018-07-20 03:56] LABS: URINE AMPHETAMINES SCREEN NEGATIVE; URINE BARBITURATES SCREEN NEGATIVE; URINE BENZODIAZEPINES SCREEN NEGATIVE; URINE COCAINE SCREEN NEGATIVE; URINE MARIJUANA (THC) SCREEN NEGATIVE; URINE METHADONE SCREEN NEGATIVE; URINE PHENCYCLIDINE SCREEN NEGATIVE
[2018-07-20] MEDS: HYDROCODONE/ACETAMINOPHEN 5-325 MG TABLET PO PRN ×3 (05:28→22:49)
[2018-07-20 06:10] LABS: ABSOLUTE BASOPHILS # (AUTO) 0.1 10^3/uL (0.0-0.2); ABSOLUTE EOSINOPHILS # (AUTO) 0.1 10^3/uL (0.0-0.6); ABSOLUTE LYMPHOCYTES (AUTO) 1.9 10^3/uL (0.5-4.7); ABSOLUTE MONOCYTES (AUTO) 0.7 10^3/uL (0.1-1.4); BASOPHILS % (AUTO) 0.8 % (0-2); EOSINOPHILS % (AUTO) 1.9 % (0-6); HEMATOCRIT 39.4 % (37.9-51.0); LYMPHOCYTES % (AUTO) 24.6 % (13-45); MEAN CORPUSCULAR HEMOGLOBIN 31.2 pg (27.0-33.4); MEAN CORPUSCULAR HGB CONC 34.2 g/dL (32.0-36.0); MEAN CORPUSCULAR VOLUME 91 fl (80-97); MONOCYTES % (AUTO) 8.7 % (3-13); PLATELET COUNT 204 10^3/uL (150-450); RED BLOOD COUNT 4.31 10^6/uL (4.35-5.55); RED CELL DISTRIBUTION WIDTH 12.9 % (11.5-14.0); TOTAL CELLS COUNTED % (AUTO) 100 %; WHITE BLOOD COUNT 7.8 10^3/uL (4.0-10.5)
[2018-07-20 06:12] LABS: HEMOGLOBIN 13.5 g/dL (13.5-17.0)
[2018-07-20 06:24] LABS: ALANINE AMINOTRANSFERASE 42 U/L (21-72); ALBUMIN 3.2 g/dL (3.5-5.0); ALKALINE PHOSPHATASE 90 U/L (38-126); ANION GAP 7 (5-19); ASPARTATE AMINO TRANSFERASE 28 U/L (17-59); BILIRUBIN,DIRECT 0.3 mg/dL (0.0-0.4); BILIRUBIN,TOTAL 0.4 mg/dL (0.2-1.3); BLOOD UREA NITROGEN 17 mg/dL (7-20); CALCIUM 9.1 mg/dL (8.4-10.2); CARBON DIOXIDE 28 mmol/L (22-30); CHLORIDE 104 mmol/L (98-107); GLUCOSE 205 mg/dL (75-110); PHOSPHORUS 3.9 mg/dL (2.5-4.5); POTASSIUM 3.7 mmol/L (3.6-5.0); TOTAL PROTEIN 5.7 g/dL (6.3-8.2)
[2018-07-20 06:35] LABS: NT PRO BNP 110 pg/mL (5-900)
[2018-07-20 06:43] LABS: TROPONIN I < 0.012 ng/mL
[2018-07-20] MEDS: INSULIN LISPRO 100 UNIT/ML 3 ML VIAL SUBCUT PRN ×4 (07:38→23:12)
[2018-07-20] MEDS: TAMSULOSIN HCL 0.4 MG CAP.SR.24H PO SCH (09:17)
[2018-07-20] MEDS: ATENOLOL 50 MG TABLET PO SCH ×2 (09:17→17:16)
[2018-07-20] MEDS: ATORVASTATIN CALCIUM 40 MG TABLET PO SCH (09:17)
[2018-07-20] MEDS: MAGNESIUM OXIDE 400 MG TABLET PO SCH (09:17)
[2018-07-20] MEDS: APIXABAN 5 MG TABLET PO SCH ×2 (09:17→17:17)
[2018-07-20] MEDS: ASPIRIN 81 MG TABLET, ENT COATED PO SCH (09:17)
[2018-07-20] MEDS: INSULIN DETEMIR 100 UNIT/ML 3 ML PEN SUBCUT SCH (09:30)
[2018-07-20] MEDS ORDERED: GABAPENTIN 400 MG CAPSULE PO SCH (10:00)
[2018-07-20] MEDS ORDERED: (PENDING PHARMACY ID) (Liraglutide [Victoza 2-Pak] 1.8 MG) SQ SCH (10:00)
[2018-07-20] MEDS ORDERED: APIXABAN 5 MG TABLET PO SCH (10:00)
[2018-07-20] MEDS ORDERED: DULOXETINE HCL 30 MG CAPSULE.DR PO SCH (10:00)
[2018-07-20] MEDS ORDERED: DULOXETINE HCL 30 MG CAPSULE.DR PO ONE (12:45)
[2018-07-20] MEDS: MUPIROCIN 2% OINTMENT 22 GM TP SCH ×2 (14:12→17:16)
[2018-07-20] MEDS: PREGABALIN 50 MG CAPSULE PO SCH ×2 (15:18→17:16)
--- NOTE | 2018-07-20 18:36 | PDOC PROGRESS REPORT ---
Subjective Progress Note for:: 07/20/18 Subjective:: AZIZA MERCHANT is a 62 year old male who has been declining for the last year. Upon arrival to the emergency department he was lethargic and could not provide any meaningful history, his brother is a elementary secretary in the ED and provided most of the history. Yesterday the patient was feeling very dizzy/lightheaded and developed nausea and gagging but no vomiting, increased unsteadiness in his gait , and generalized pallor. He checked his blood sugar which was greater than 500 and he gave himself 36 units of NovoLog, upon arrival to the ED his blood sugar was 164, oxygen saturation was 79%. He was initiated on oxygen via nasal cannula and rapidly improved. Initial vBG showed pH of 7.24 and a PCO2 of 68, repeated vBG shows a PCO2 improved to 61 after being on oxygen for at least 60 minutes. His initial blood pressure was 69/37 which rapidly improved after 1 L of IV fluids to 111/71. He was found to have a stage I pressure ulcer of his sacrum which did not appear to be infected. The patient indicates that he has been progressively declining in his ability to ambulate because his legs are weak and he has a lot of pain down the backs of both legs which he thinks might be sciatica as it started on the left and has now moved to the right. This decline in his ability to ambulate is being evaluated for his primary care provider and he recently had a MRI of his lumbosacral spine to determine if there were any anatomic problems that might be resulting in his pain and weakness. Reason For Visit: ACUTE RENAL FAILURE,DEHYDRATION,DEBILITY Physical Exam Vital Signs: Temp Pulse Resp BP Pulse Ox 97.7 F 85 15 108/61 98 07/20/18 02:59 07/19/18 19:00 07/20/18 13:31 07/20/18 17:45 07/20/18 17:45 Intake & Output 07/19/18 07/20/18 07/21/18 06:59 06:59 06:59 Intake Total 1240 Balance 1240 General appearance: PRESENT: no acute distress, cooperative Head exam: PRESENT: atraumatic, normocephalic Eye exam: PRESENT: conjunctiva pink, EOMI. ABSENT: conjunctival injection, nystagmus, periorbital swelling, scleral icterus Ear exam: PRESENT: normal external ear exam. ABSENT: drainage Mouth exam: PRESENT: moist, tongue midline Neck exam: ABSENT: thyromegaly, tracheal deviation Respiratory exam: PRESENT: clear to auscultation gerardo, symmetrical, unlabored Cardiovascular exam: PRESENT: RRR, tachycardia. ABSENT: bradycardia, clicks, diastolic murmur, gallop, rubs, systolic murmur Pulses: PRESENT: normal radial pulses, normal dorsalis pedis pul Vascular exam: PRESENT: normal capillary refill. ABSENT: pallor GI/Abdominal exam: PRESENT: normal bowel sounds, soft Rectal exam: PRESENT: deferred Extremities exam: PRESENT: +1 edema - Bilateral lower extremities, other - Decreased range of motion and decreased muscular strength of the bilateral lower extremities as noted. Pain with range of motion is also noted.. ABSENT: calf tenderness, clubbing, full ROM, joint swelling Musculoskeletal exam: ABSENT: deformity, dislocation Neurological exam: PRESENT: alert, awake, oriented to person, oriented to place , oriented to time, oriented to situation, CN II-XII grossly intact Psychiatric exam: PRESENT: depressed, other - Affect is somewhat distrustful and passive-aggressive Skin exam: PRESENT: erythema - Small area of the sacrum shows nonblanching erythema without edema or significant induration.. ABSENT: jaundice, rash, urticaria Results Laboratory Results: 07/20/18 05:55 07/20/18 05:55 07/19/18 07/20/18 07/20/18 23:05 05:55 05:55 WBC 7.8 RBC 4.31 L Hgb 13.5 D Hct 39.4 MCV 91 MCH 31.2 MCHC 34.2 RDW 12.9 Plt Count 204 Seg Neutrophils % 64.0 Lymphocytes % 24.6 Monocytes % 8.7 Eosinophils % 1.9 Basophils % 0.8 Absolute Neutrophils 5.0 Absolute Lymphocytes 1.9 Absolute Monocytes 0.7 Absolute Eosinophils 0.1 Absolute Basophils 0.1 Sodium 139.0 Potassium 3.7 Chloride 104 Carbon Dioxide 28 Anion Gap 7 BUN 17 Creatinine 0.92 Est GFR ( Amer) > 60 Est GFR (Non-Af Amer) > 60 Glucose 205 H Lactic Acid 3.6 H Calcium 9.1 Phosphorus 3.9 Magnesium 2.3 Total Bilirubin 0.4 AST 28 ALT 42 Alkaline Phosphatase 90 Total Protein 5.7 L Albumin 3.2 L 07/20/18 05:55 WBC RBC Hgb Hct MCV MCH MCHC RDW Plt Count Seg Neutrophils % Lymphocytes % Monocytes % Eosinophils % Basophils % Absolute Neutrophils Absolute Lymphocytes Absolute Monocytes Absolute Eosinophils Absolute Basophils Sodium Potassium Chloride Carbon Dioxide Anion Gap BUN Creatinine Est GFR ( Amer) Est GFR (Non-Af Amer) Glucose Lactic Acid 1.2 Calcium Phosphorus Magnesium Total Bilirubin AST ALT Alkaline Phosphatase Total Protein Albumin 07/19/18 07/20/18 07/20/18 23:07 05:55 10:41 Troponin I < 0.012 < 0.012 < 0.012 NT-Pro-B Natriuret Pep 110 Impressions: Chest X-Ray 07/19/18 19:13 IMPRESSION: NO ACUTE RADIOGRAPHIC FINDING IN THE CHEST. Assessment & Plan - Diagnosis (1) Acute kidney injury (nontraumatic) Is this a current diagnosis for this admission?: Yes Plan: The patient's elevated renal functions rapidly returned to normal with IV hydration. (2) Diabetes mellitus type 2 in obese Is this a current diagnosis for this admission?: Yes Plan: Patient's blood sugar has remained reasonably well controlled since time of admission. (3) Hypercapnia Is this a current diagnosis for this admission?: Yes Plan: Patient's hypercapnia and hypoxia resolved rapidly with supportive care and supplemental oxygen. (4) Hypotension Qualifiers: Hypotension type: unspecified hypotension type Qualified Code(s): I95.9 - Hypotension, unspecified Is this a current diagnosis for this admission?: Yes Plan: Patient's hypotension resolved rapidly with intravenous fluid rehydration. - Time Time Spent with patient: 35 or more minutes Anticipated discharge: Home Within: within 24 hours - Plan Summary Plan Summary: Patient will be observed for the remainder of the day and until tomorrow morning for any recurrence of his acute problems. We will make some changes in his medical regimen to try to get him better pain relief. He will be started on Lyrica and his gabapentin will be discontinued. A PT consult will be obtained from the morning.
[2018-07-20] MEDS ORDERED: (PENDING PHARMACY ID) (Tizanidine Hcl [Zanaflex] 2 MG) PO PRN (18:40)
[2018-07-20] MEDS ORDERED: TIZANIDINE HCL 4 MG TABLET PO PRN (18:48)
[2018-07-20] MEDS: SACUBITRIL/VALSARTAN 49 MG/51 MG TABLET PO SCH (22:00)
[2018-07-21] MEDS: HYDROCODONE/ACETAMINOPHEN 5-325 MG TABLET PO PRN ×4 (04:06→23:10)
[2018-07-21] MEDS ORDERED: (PENDING PHARMACY ID) (Liraglutide [Victoza 2-Pak] 1.8 MG) SQ SCH (10:00)
[2018-07-21] MEDS: DULOXETINE HCL 30 MG CAPSULE.DR PO SCH (10:14)
[2018-07-21] MEDS: TAMSULOSIN HCL 0.4 MG CAP.SR.24H PO SCH (10:14)
[2018-07-21] MEDS: ATENOLOL 50 MG TABLET PO SCH ×2 (10:14→17:20)
[2018-07-21] MEDS: PREGABALIN 50 MG CAPSULE PO SCH ×3 (10:14→17:20)
[2018-07-21] MEDS: SACUBITRIL/VALSARTAN 49 MG/51 MG TABLET PO SCH ×2 (10:15→21:11)
[2018-07-21] MEDS: MAGNESIUM OXIDE 400 MG TABLET PO SCH (10:15)
[2018-07-21] MEDS: ASPIRIN 81 MG TABLET, ENT COATED PO SCH (10:15)
[2018-07-21] MEDS: ATORVASTATIN CALCIUM 40 MG TABLET PO SCH (10:15)
[2018-07-21] MEDS: INSULIN DETEMIR 100 UNIT/ML 3 ML PEN SUBCUT SCH (10:16)
[2018-07-21] MEDS: MUPIROCIN 2% OINTMENT 22 GM TP SCH ×3 (10:22→17:20)
[2018-07-21] MEDS: APIXABAN 5 MG TABLET PO SCH ×2 (10:22→17:20)
[2018-07-21] MEDS: INSULIN LISPRO 100 UNIT/ML 3 ML VIAL SUBCUT PRN ×2 (13:06→16:26)
--- NOTE | 2018-07-21 16:59 | PDOC PROGRESS REPORT ---
Subjective Progress Note for:: 07/21/18 Subjective:: AZIZA MERCHANT is a 62 year old male who has been declining for the last year. Upon arrival to the emergency department he was lethargic and could not provide any meaningful history, his brother is a secretary specialist in the ED and provided most of the history. Yesterday the patient was feeling very dizzy/lightheaded and developed nausea and gagging but no vomiting, increased unsteadiness in his gait , and generalized pallor. He checked his blood sugar which was greater than 500 and he gave himself 36 units of NovoLog, upon arrival to the ED his blood sugar was 164, oxygen saturation was 79%. He was initiated on oxygen via nasal cannula and rapidly improved. Initial vBG showed pH of 7.24 and a PCO2 of 68, repeated vBG shows a PCO2 improved to 61 after being on oxygen for at least 60 minutes. His initial blood pressure was 69/37 which rapidly improved after 1 L of IV fluids to 111/71. He was found to have a stage I pressure ulcer of his sacrum which did not appear to be infected. The patient indicates that he has been progressively declining in his ability to ambulate because his legs are weak and he has a lot of pain down the backs of both legs which he thinks might be sciatica as it started on the left and has now moved to the right. This decline in his ability to ambulate is being evaluated for his primary care provider and he recently had a MRI of his lumbosacral spine to determine if there were any anatomic problems that might be resulting in his pain and weakness. 07/21/18: Mr. Lyon states that he is feeling a little better but he still has pain in his legs. Does not feel like he can get up and walk and is thinking that he will want to go to rehab after he is discharged from the hospital. His initial symptoms rapidly cleared in the emergency room and have not been problematic since his admission. His blood sugar has been significantly elevated and will need a revision in his current diabetic therapy. His blood pressure has remained stable and well controlled as have the remainder of his vital signs. His examination is little changed except he is much more comfortable and has significantly less edema of his bilateral pretibial areas, ankles and feet. Reason For Visit: ACUTE RENAL FAILURE,DEHYDRATION,DEBILITY Physical Exam Vital Signs: Temp Pulse Resp BP Pulse Ox 98.5 F 80 18 121/68 97 07/21/18 14:53 07/21/18 14:53 07/21/18 14:53 07/21/18 14:53 07/21/18 14:53 Intake & Output 07/20/18 07/21/18 07/22/18 06:59 06:59 06:59 Intake Total 1715 475 Output Total 900 Balance 1715 -425 General appearance: PRESENT: no acute distress, cooperative Head exam: PRESENT: atraumatic, normocephalic Eye exam: PRESENT: conjunctiva pink. ABSENT: conjunctival injection, nystagmus , periorbital swelling, scleral icterus Ear exam: PRESENT: normal external ear exam. ABSENT: drainage Mouth exam: PRESENT: moist, tongue midline Neck exam: ABSENT: thyromegaly, tracheal deviation Respiratory exam: PRESENT: clear to auscultation gerardo, symmetrical, unlabored Cardiovascular exam: PRESENT: RRR. ABSENT: clicks, diastolic murmur, gallop, rubs, systolic murmur Vascular exam: PRESENT: normal capillary refill. ABSENT: pallor GI/Abdominal exam: PRESENT: normal bowel sounds, soft Rectal exam: PRESENT: deferred Extremities exam: PRESENT: pedal edema - Trace pedal edema bilaterally., other - Minimal to trace edema of the ankles and pretibial regions bilaterally. ABSENT: joint swelling Musculoskeletal exam: PRESENT: tenderness - Right lower extremity anterior tibial surface has an 6 cm x 1 cm linear superficial abrasion present which is presently tender to palpation of almost any portion of the right lower extremity below the knee.. ABSENT: deformity, dislocation Neurological exam: PRESENT: alert, oriented to person, oriented to place, oriented to time, oriented to situation, CN II-XII grossly intact Psychiatric exam: PRESENT: depressed, other - Continues to be somewhat passive- aggressive in his affect and he is noted to be somewhat depressed and his mood. Skin exam: ABSENT: jaundice, rash, urticaria Results Laboratory Results: 07/20/18 05:55 07/20/18 05:55 07/19/18 07/20/18 07/20/18 23:07 05:55 10:41 Troponin I < 0.012 < 0.012 < 0.012 NT-Pro-B Natriuret Pep 110 Impressions: Chest X-Ray 07/19/18 19:13 IMPRESSION: NO ACUTE RADIOGRAPHIC FINDING IN THE CHEST. Assessment & Plan - Diagnosis (1) Chronic pain Qualifiers: Chronic pain type: other chronic pain Qualified Code(s): G89.29 - Other chronic pain Is this a current diagnosis for this admission?: Yes Plan: He has been undergoing evaluation of a progressively worsening chronic pain and weakness involving the lower back and radiating down the bilateral posterior legs to the feet. The pain originally started on the left side and then has moved to the right side however both sides continue to give him pain but his right side is more intense at this point in time. Along with the pain he has had severely debilitating weakness to the point where he has a great deal of difficulty standing or walking at all at this point by his claim. He has been spending most of his time laying around on the couch or in bed at home. His primary care provider had an MRI ordered which not show any definitive cause for the type of pain that the patient is experiencing or the disability which he is claiming to have. The patient will be evaluated by PT and OT here at [facility] and then arrangements will be made for him to enter into a rehabilitation program at a snf facility where he can receive intensive therapy and hopefully help to recover his ability to ambulate and where his pain can be managed or a referral to a pain management clinic may be in order. (2) Acute kidney injury (nontraumatic) Is this a current diagnosis for this admission?: Yes Plan: The patient's elevated renal functions rapidly returned to normal with IV hydration. (3) Diabetes mellitus type 2 in obese Is this a current diagnosis for this admission?: Yes Plan: Patient's blood sugar has remained reasonably well controlled since time of admission. (4) Hypercapnia Is this a current diagnosis for this admission?: Yes Plan: Patient's hypercapnia and hypoxia resolved rapidly with supportive care and supplemental oxygen. (5) Hypotension Qualifiers: Hypotension type: unspecified hypotension type Qualified Code(s): I95.9 - Hypotension, unspecified Is this a current diagnosis for this admission?: Yes Plan: Patient's hypotension resolved rapidly with intravenous fluid rehydration. - Time Time Spent with patient: 35 or more minutes Medications reviewed and adjusted accordingly: Yes Anticipated discharge: SNF Within: within 48 hours
[2018-07-21 18:13] LABS: APPEARANCE,URINE CLEAR; BILIRUBIN,URINE NEGATIVE (NEGATIVE); COLOR,URINE STRAW; GLUCOSE, URINE >=500 mg/dL (NEGATIVE); KETONES,URINE NEGATIVE (NEGATIVE); LEUKOCYTE ESTERASE,URINE NEGATIVE (NEGATIVE); NITRITE,URINE NEGATIVE (NEGATIVE); PROTEIN,URINE NEGATIVE (NEGATIVE); URINE SPECIFIC GRAVITY 1.028; UROBILINOGEN,URINE NEGATIVE mg/dL (<2.0)
--- NOTE | 2018-07-21 21:04 | XCELERA REPORT ---
[address] [address] Transthoracic Echocardiogram Report Name: AZIZA MERCHANT Age: 62 yrs Gender: Male : 1955 Patient Status: Inpatient Patient Location: [address] [place] [address] Study Date: 07/21/2018 11:25 AM Procedure: A two-dimensional transthoracic echocardiogram with color flow and Doppler was performed. Study Quality: Technically suboptimal. The study was technically difficult with many images being suboptimal in quality. Reason For Study: SYNCOPE History: SYNCOPE. Ordering Physician: BARB PETERS Performed By: Magdalena Hernandez Interpretation Summary The left ventricle is grossly normal size. No True apical 2 chamber views obtained.Hence cannot comment on the apical anterior , the basal anterior, the basal inferior and apical inferior bella.The mid anterior , the mid inferior and the rest of the LV bella contract normally. .Normal LVEF at 60% in the limited views. Doppler measurements suggest impaired left ventricular relaxation, which is associated with grade I/IV or mild diastolic dysfunction There is no evidence of mitral valve prolapse. There is no mitral regurgitation noted. There is no aortic valve stenosis No aortic regurgitation is present. There is no tricuspid stenosis. No tricuspid regurgitation. Unable to calculate RVSP due lack of TR jet. There is no pericardial effusion. MMode/2D Measurements & Calculations RVDd: 2.3 cm LVIDd: 5.5 cm FS: 33.8 % Ao root diam: 3.2 cm IVSd: 0.71 cm LVIDs: 3.6 cm EDV(Teich): 145.9 ml Ao root area: 7.9 cm2 LVPWd: 0.81 cm ESV(Teich): 55.3 ml EF(Teich): 62.1 % Doppler Measurements & Calculations MV E max radha: MV dec slope: Ao V2 max: LV V1 max P.2 cm/sec 88.8 cm/sec 3.1 mmHg MV A max radha: 387.4 cm/sec2 Ao max PG: LV V1 max: 96.1 cm/sec MV dec time: 0.17 sec 3.2 mmHg 88.7 cm/sec MV E/A: 0.68 PA V2 max: PI max radha: 95.6 cm/sec 143.1 cm/sec PA max P.7 mmHg PI max P.2 mmHg PI dec slope: 170.5 cm/sec2 Left Ventricle The left ventricle is grossly normal size. There is normal left ventricular wall thickness. No True apical 2 chamber views obtained.Hence cannot comment on the apical anterior , the basal anterior, the basal inferior and apical inferior bella.The mid anterior , the mid inferior and the rest of the LV bella contract normally. .Normal LVEF at 60% in the limited views. Doppler measurements suggest impaired left ventricular relaxation, which is associated with grade I/IV or mild diastolic dysfunction. Right Ventricle The right ventricle is not well visualized secondary to technical limitations. Atria Right atrium not well visualized secondary to technical limitations. The left atrial size is normal. Mitral Valve There is no evidence of mitral valve prolapse. There is no mitral valve stenosis. There is no mitral regurgitation noted. Aortic Valve There is no aortic valve stenosis. There is no LVOT obstruction. No aortic regurgitation is present. Tricuspid Valve There is no tricuspid stenosis. No tricuspid regurgitation. Unable to calculate RVSP due lack of TR jet. Pulmonic Valve There is no pulmonic valvular stenosis. There is a trace amount of pulmonic regurgitation. Great Vessels The aortic root is not well visualized. Effusions There is no pericardial effusion. : BARB PETERS > Elli Bartholomew
[2018-07-21] MEDS: ESCITALOPRAM OXALATE 10 MG TABLET PO SCH (21:10)
[2018-07-22] MEDS ORDERED: TIZANIDINE HCL 4 MG TABLET ONE (00:50)
[2018-07-22] MEDS ORDERED: TIZANIDINE HCL 4 MG TABLET PO ONE (01:25)
[2018-07-22] MEDS ORDERED: HYDROMORPHONE HCL INJ/PF 2 MG/ML AMPULE IV ONE (02:15)
[2018-07-22] MEDS: ESCITALOPRAM OXALATE 10 MG TABLET PO SCH (10:17)
[2018-07-22] MEDS: ATORVASTATIN CALCIUM 40 MG TABLET PO SCH (10:18)
[2018-07-22] MEDS: DULOXETINE HCL 30 MG CAPSULE.DR PO SCH (10:18)
[2018-07-22] MEDS: ASPIRIN 81 MG TABLET, ENT COATED PO SCH (10:18)
[2018-07-22] MEDS: MAGNESIUM OXIDE 400 MG TABLET PO SCH (10:18)
[2018-07-22] MEDS: ATENOLOL 50 MG TABLET PO SCH ×2 (10:18→17:10)
[2018-07-22] MEDS: APIXABAN 5 MG TABLET PO SCH ×2 (10:18→17:10)
[2018-07-22] MEDS: TAMSULOSIN HCL 0.4 MG CAP.SR.24H PO SCH (10:18)
[2018-07-22] MEDS: PREGABALIN 50 MG CAPSULE PO SCH ×3 (10:18→17:07)
[2018-07-22] MEDS: INSULIN DETEMIR 100 UNIT/ML 3 ML PEN SUBCUT SCH (10:19)
[2018-07-22] MEDS: SACUBITRIL/VALSARTAN 49 MG/51 MG TABLET PO SCH ×2 (10:19→22:59)
[2018-07-22] MEDS: MUPIROCIN 2% OINTMENT 22 GM TP SCH ×3 (10:21→17:05)
[2018-07-22] MEDS: HYDROCODONE/ACETAMINOPHEN 5-325 MG TABLET PO PRN ×3 (10:21→23:02)
[2018-07-22] MEDS: INSULIN LISPRO 100 UNIT/ML 3 ML VIAL SUBCUT PRN ×2 (17:07→23:00)
--- NOTE | 2018-07-22 18:29 | PDOC PROGRESS REPORT ---
Subjective Progress Note for:: 07/22/18 Subjective:: Mr. Medina is a 62-year-old male with a past medical history of hypertension , CAD with prior CABG, diabetes mellitus, chronic low back, and left hip pain and history of depression who was initially admitted with weakness and mild confusion and was found to have dehydration, hypercapnia and acute kidney injury. Overnight, per RN, patient became upset last night that he was not able to get his [place] as scheduled. Upon encounter this morning, patient's brother was on the bedside and he expressed that patient has been having suicidal thoughts at home. When patient was asked about this, he said he does not want to talk about it. Patient's brother did say that, in the past 4 months, patient had expressed that he would not want to continue living if he is going to continue to have this chronic back and hip pain. Patient did had an MRI ordered by his PCP recently which only showed mild spinal stenosis on L4-L5 and L5-S1. He has been on long-term opiates and takes is on [place] qid prn supposedly but he does state that he has been taking more than that because of his pain. Reason For Visit: ACUTE RENAL FAILURE,DEHYDRATION,DEBILITY Physical Exam Vital Signs: Temp Pulse Resp BP Pulse Ox 98.2 F 65 16 123/63 93 07/22/18 15:34 07/22/18 15:34 07/22/18 15:34 07/22/18 15:34 07/22/18 15:34 Intake & Output 07/21/18 07/22/18 07/23/18 06:59 06:59 06:59 Intake Total 1715 1225 470 Output Total 2500 900 Balance 1715 -1275 -430 Weight 212 lb 8.41 oz General appearance: PRESENT: no acute distress, well-developed, well-nourished Head exam: PRESENT: atraumatic, normocephalic Eye exam: PRESENT: conjunctiva pink, EOMI, PERRLA. ABSENT: scleral icterus Ear exam: PRESENT: normal external ear exam Mouth exam: PRESENT: moist, tongue midline Neck exam: ABSENT: carotid bruit, JVD, lymphadenopathy, thyromegaly Respiratory exam: PRESENT: clear to auscultation gerardo. ABSENT: rales, rhonchi, wheezes Cardiovascular exam: PRESENT: RRR. ABSENT: diastolic murmur, rubs, systolic murmur Pulses: PRESENT: normal dorsalis pedis pul GI/Abdominal exam: PRESENT: normal bowel sounds, soft. ABSENT: distended, guarding, mass, organolmegaly, rebound, tenderness Rectal exam: PRESENT: deferred Neurological exam: PRESENT: alert, awake, oriented to person, oriented to place , oriented to time, oriented to situation, CN II-XII grossly intact. ABSENT: motor sensory deficit Psychiatric exam: PRESENT: flat affect, other - Patient will not deny suicidal or homicidal ideations and verbalized he does not want to talk about his thought process. Results Laboratory Results: 07/20/18 05:55 07/20/18 05:55 07/21/18 17:53 Urine Color STRAW Urine Appearance CLEAR Urine pH 7.0 Ur Specific Haskell 1.028 Urine Protein NEGATIVE Urine Glucose (UA) >=500 H Urine Ketones NEGATIVE Urine Blood SMALL H Urine Nitrite NEGATIVE Ur Leukocyte Esterase NEGATIVE Urine WBC (Auto) 2 Urine RBC (Auto) 1 07/19/18 07/20/18 07/20/18 23:07 05:55 10:41 Troponin I < 0.012 < 0.012 < 0.012 NT-Pro-B Natriuret Pep 110 Impressions: Chest X-Ray 07/19/18 19:13 IMPRESSION: NO ACUTE RADIOGRAPHIC FINDING IN THE CHEST. Assessment & Plan - Diagnosis (1) Acute kidney injury (nontraumatic) Is this a current diagnosis for this admission?: Yes Plan: Improved. Patient's creatinine is almost back to baseline on at 0.92. He initially came in with a creatinine 1.46. He has a baseline creatinine of 0.8. (2) Chronic pain Qualifiers: Chronic pain type: other chronic pain Qualified Code(s): G89.29 - Other chronic pain Is this a current diagnosis for this admission?: Yes Plan: Patient complains of chronic low back pain and chronic left hip pain which she has been having for more than 2 years now. Patient did have an MRI ordered by his PCP recently which only showed mild spinal stenosis on L4-L5 and L5-S1. He has been on long-term opiates and is on [place] qid prn supposedly but he does state that he has been taking more than that because of his pain (says "I've been popping it like candy because of the pain). He says he has already been referred to a pain specialist on outpatient basis but has not seen them yet. He says that the pain is 12/10 even when asked to rate the pain from a scale of 0-10. He does not appear to be in acute distress or any significant pain at the moment. Will keep [place] scheduled at q6 scheduled for now. (3) Physical deconditioning Is this a current diagnosis for this admission?: Yes Plan: Patient has been seen by PT. Patient will be discharged to rehab once he is assessed by psych and final disposition will be decided. (4) Depression Is this a current diagnosis for this admission?: Yes Plan: Upon encounter this morning, patient's brother was on the bedside and he expressed that patient has been having suicidal thoughts at home. When patient was asked about this, he said he does not want to talk about it. Patient's brother did say that, in the past 4 months, patient had expressed that he would not want to continue living if he is going to continue to have this chronic back and hip pain. Patient apparently also posted suicidal thoughts on social media. Patient refused to discuss this further with this provider. Will consult psych for further evaluation and recommendations.
--- NOTE | 2018-07-22 23:55 | RADIOLOGY REPORT (SQ) ---
EXAM DESCRIPTION: XR HIP 1 VIEW BILATERAL COMPLETED DATE/TME: 07/22/2018 00:00 CLINICAL HISTORY: 62 years Male, bilateral hip pain COMPARISON: None. Findings: Osteoarthritis. Atherosclerosis. Bones, joints, and soft tissues of the bilateral XR HIP 3 VIEWS BILATERAL appear otherwise intact. IMPRESSION: No acute findings.
[2018-07-23] MEDS: HYDROCODONE/ACETAMINOPHEN 5-325 MG TABLET PO PRN ×3 (05:19→21:17)
[2018-07-23] MEDS: ACETAMINOPHEN 325 MG TABLET PO PRN ×2 (07:41→23:27)
[2018-07-23] MEDS: INSULIN LISPRO 100 UNIT/ML 3 ML VIAL SUBCUT PRN ×3 (08:26→21:24)
[2018-07-23] MEDS: ASPIRIN 81 MG TABLET, ENT COATED PO SCH (09:29)
[2018-07-23] MEDS: MAGNESIUM OXIDE 400 MG TABLET PO SCH (09:29)
[2018-07-23] MEDS: TAMSULOSIN HCL 0.4 MG CAP.SR.24H PO SCH (09:29)
[2018-07-23] MEDS: ESCITALOPRAM OXALATE 10 MG TABLET PO SCH (09:29)
[2018-07-23] MEDS: DULOXETINE HCL 30 MG CAPSULE.DR PO SCH (09:29)
[2018-07-23] MEDS: PREGABALIN 50 MG CAPSULE PO SCH ×3 (09:29→17:44)
[2018-07-23] MEDS: APIXABAN 5 MG TABLET PO SCH ×2 (09:29→17:44)
[2018-07-23] MEDS: SACUBITRIL/VALSARTAN 49 MG/51 MG TABLET PO SCH ×2 (09:29→21:17)
[2018-07-23] MEDS: INSULIN DETEMIR 100 UNIT/ML 3 ML PEN SUBCUT SCH (09:30)
[2018-07-23] MEDS: ATORVASTATIN CALCIUM 40 MG TABLET PO SCH (09:30)
[2018-07-23] MEDS: MUPIROCIN 2% OINTMENT 22 GM TP SCH ×3 (09:32→17:46)
[2018-07-23] MEDS: ATENOLOL 50 MG TABLET PO SCH ×2 (13:39→17:44)
--- NOTE | 2018-07-23 15:20 | PSYCHOLOGICAL NOTE ---
Psych Note - Psych Note Psych Note: Reason for Consult: Depression, suicidal ideation Patient is a 62-year-old male who presents with lightheadedness, weakness and near syncope. The patient himself is unable to provide meaningful history at time of arrival due to being hypotensive and somewhat lethargic. Patient reports he came to [facility] ED because of pain in his legs. He reports that he does have depression from the pain and feels that is directly connected to it. Patient denies thoughts of harming himself stating "if you find me hurt look for somebody because I did not do it...I do not want to " He reports that he normally sleeps a lot when he is increased depression. He states that he was started on Cymbalta recently however does not know if is working. He reports that he hurts all the time. Since discloses that the patient has been on Cymbalta since approximately March or April. She states that she feels that his depression has worsened. She reports "it is like he is given up... he has no hope..."She confirms the patient does not have access to weapons in the home and agrees to ensure she administer his medications as prescribed and the patient does not have access to the medications when he returns home. She reports that the patient has major depressive disorder however agrees that depression appears to be connected to the pain levels. She reports "he hurts all the time and talks about it (dying) a lot." She denies the patient is ever done anything to harm himself and denies ever stating a plan. Patient is alert and orientated to person, place, time and circumstance. Mood is euthymic with flat affect. Patient endorses passive suicidal ideation i.e. no plans means or intent. Patient denies homicidal ideation. Delusions are absent behaviors congruent with an intact reality based presentation i.e. organized and linear thought process. Eye contact was well-maintained. Conversational speech was slow in difficult to hear at times. Intellectual abilities appear to be average to low average range. Attention and concentration are fair. Insight, judgment, impulse control are fair. Medication recommendations per [facility]'s contracted psychiatrist Dr. Laurel ZAPATA are as follows Please decrease Cymbalta to 30 mg for 5 days then discontinue Please discontinue Lexapro Please start Effexor 37.5 mg daily Please add BuSpar 5 mg every morning and 10 mg nightly Diagnosis 311 (F32.9) unspecified depressive disorder Clinician notes patient's family discloses major depressive disorder however patient states onset of depression was pain and is directly correlated with his pain Impression\\plan: Patient is cleared from acute psychiatric services. Patient discloses passive suicidal ideation directly connected to his pain. Patient's family disclose to [facility] staff concerned the patient may have attempting to overdose on his medications. Patient adamantly denies wanting to harm himself stating that he would never intentionally hurt himself. Clinician notes an event during patient stay in the emergency department where he became very irate when asking for pain medication and was told that he had another hour to wait before he could have any more. There is concern the patient may be taking his medication more often than prescribed because of his report of pain level and probable increase of tolerance. Clinician discussed with patient and patient's steps to take for discharge plan. Currently patient is going to a SNF however upon arrival to home, both patient and patient's agreed to ensure patient does not have have access to medications or weapons. They report there is one weapon in the home that is the patient's son; the patient does not have access. They both agree to ensure the patient's administers patient's medications as prescribed. Medication recommendations have been provided. Dr. Lyles was consulted and the care management this patient; attending physician is in agreement with recommendations and disposition.
[2018-07-23] MEDS: SENNOSIDES/DOCUSATE 8.6-50 MG 1 EACH TABLET PO PRN (17:44)
--- NOTE | 2018-07-23 18:37 | PDOC PROGRESS REPORT ---
Subjective Progress Note for:: 07/23/18 Subjective:: Mr. Medina is a 62-year-old male with a past medical history of hypertension , atrial fibrillation, CAD with prior CABG, diabetes mellitus, diabetic neuropathy, chronic low back, and left hip pain and history of depression who was initially admitted with weakness and mild confusion and was found to have dehydration, hypercapnia and acute kidney injury. No acute event overnight. Patient's chroic pain has been fairly controlled. Discussed hip x-rays and recent MRI spine results as part of work-up for patient 's chronic hip and lower back pain with family, brother and on bedside. Discussed that hip x-rays shows osteoarthritis and MRI showed mild lumbosacral spinal stenoses. Explained management for these are primarily non-surgical including pain medications and particularly physical therapy. Explained plan to discharge patient to rehab and he and family is amenable to plan and disposition. Reason For Visit: ACUTE RENAL FAILURE,DEHYDRATION,DEBILITY Physical Exam Vital Signs: Temp Pulse Resp BP Pulse Ox 98.2 F 65 18 142/74 H 98 07/23/18 16:06 07/23/18 16:06 07/23/18 16:06 07/23/18 16:06 07/23/18 16:06 Intake & Output 07/22/18 07/23/18 07/24/18 06:59 06:59 06:59 Intake Total 1225 936 738 Output Total 2500 1700 950 Balance -1275 -764 -212 Weight 212 lb 8.41 oz 210 lb 12.191 oz General appearance: PRESENT: no acute distress, well-developed, well-nourished Head exam: PRESENT: atraumatic, normocephalic Eye exam: PRESENT: conjunctiva pink, EOMI, PERRLA. ABSENT: scleral icterus Ear exam: PRESENT: normal external ear exam Mouth exam: PRESENT: moist, tongue midline Neck exam: ABSENT: carotid bruit, JVD, lymphadenopathy, thyromegaly Respiratory exam: PRESENT: clear to auscultation gerardo. ABSENT: rales, rhonchi, wheezes Cardiovascular exam: PRESENT: RRR. ABSENT: diastolic murmur, rubs, systolic murmur Pulses: PRESENT: normal dorsalis pedis pul GI/Abdominal exam: PRESENT: normal bowel sounds, soft. ABSENT: distended, guarding, mass, organolmegaly, rebound, tenderness Rectal exam: PRESENT: deferred Neurological exam: PRESENT: alert, awake, oriented to person, oriented to place , oriented to time, oriented to situation, CN II-XII grossly intact. ABSENT: motor sensory deficit Results Laboratory Results: 07/20/18 05:55 07/20/18 05:55 07/19/18 07/20/18 07/20/18 23:07 05:55 10:41 Troponin I < 0.012 < 0.012 < 0.012 NT-Pro-B Natriuret Pep 110 Impressions: Chest X-Ray 07/19/18 19:13 IMPRESSION: NO ACUTE RADIOGRAPHIC FINDING IN THE CHEST. Hip X-Ray 07/22/18 00:00 IMPRESSION: No acute findings. Assessment & Plan - Diagnosis (1) Acute kidney injury (nontraumatic) Is this a current diagnosis for this admission?: Yes Plan: Improved. Patient's creatinine is almost back to baseline on at 0.92. He initially came in with a creatinine 1.46. (2) Chronic pain Qualifiers: Chronic pain type: other chronic pain Qualified Code(s): G89.29 - Other chronic pain Is this a current diagnosis for this admission?: Yes Plan: Patient complains of chronic low back pain and chronic left hip pain which she has been having for more than 2 years now. Discussed hip x-rays and recent MRI spine results as part of work-up for patient's chronic hip and lower back pain with family, brother and on bedside. Discussed that hip x-rays shows osteoarthritis and MRI showed mild lumbosacral spinal stenoses. Explained management for these are primarily non-surgical including pain medications and particularly physical therapy. Explained plan to discharge patient to rehab and he and family is amenable to plan and disposition. Continue home Ruth. (3) Physical deconditioning Is this a current diagnosis for this admission?: Yes Plan: Patient has been seen by PT. Patient will be discharged to rehab tomorrow. (4) Depression Is this a current diagnosis for this admission?: Yes Plan: Psych consulted. Patient does not have active suicidal ideations. Discussed with psych and noted recommendations to discontinue Lexapro, reduce Cymbalta, and start Buspar and Effexor. (5) Atrial fibrillation Qualifiers: Atrial fibrillation type: paroxysmal Qualified Code(s): I48.0 - Paroxysmal atrial fibrillation Is this a current diagnosis for this admission?: Yes Plan: Currently in sinus rhythm. Continue Eliquis and beta katie. - Time Time Spent with patient: 25-34 minutes
[2018-07-23] MEDS ORDERED: BUSPIRONE HCL 10 MG TABLET PO SCH (22:00)
[2018-07-24] MEDS ORDERED: KETOROLAC TROMETHAMINE INJ/PF 30 MG/1 ML SDV IV ONE (01:30)
[2018-07-24] MEDS: HYDROCODONE/ACETAMINOPHEN 5-325 MG TABLET PO PRN ×3 (03:35→17:05)
[2018-07-24 06:45] LABS: ANION GAP 6 (5-19); BLOOD UREA NITROGEN 22 mg/dL (7-20); CALCIUM 9.5 mg/dL (8.4-10.2); CARBON DIOXIDE 29 mmol/L (22-30); CHLORIDE 104 mmol/L (98-107); GLUCOSE 216 mg/dL (75-110); POTASSIUM 5.2 mmol/L (3.6-5.0)
[2018-07-24] MEDS ORDERED: BUSPIRONE HCL 10 MG TABLET PO SCH (08:00)
[2018-07-24] MEDS: ACETAMINOPHEN 325 MG TABLET PO PRN (08:09)
[2018-07-24] MEDS: ASPIRIN 81 MG TABLET, ENT COATED PO SCH (09:37)
[2018-07-24] MEDS: MAGNESIUM OXIDE 400 MG TABLET PO SCH (09:37)
[2018-07-24] MEDS: APIXABAN 5 MG TABLET PO SCH ×2 (09:37→17:05)
[2018-07-24] MEDS: PREGABALIN 50 MG CAPSULE PO SCH ×3 (09:37→17:05)
[2018-07-24] MEDS: TAMSULOSIN HCL 0.4 MG CAP.SR.24H PO SCH (09:38)
[2018-07-24] MEDS: SACUBITRIL/VALSARTAN 49 MG/51 MG TABLET PO SCH (09:38)
[2018-07-24] MEDS: MUPIROCIN 2% OINTMENT 22 GM TP SCH ×3 (09:41→17:06)
[2018-07-24] MEDS: INSULIN DETEMIR 100 UNIT/ML 3 ML PEN SUBCUT SCH (09:47)
[2018-07-24] MEDS ORDERED: DULOXETINE HCL 30 MG CAPSULE.DR PO SCH (10:00)
[2018-07-24] MEDS ORDERED: LIDOCAINE 5% (700 MG) TRANSDERMAL ADH..PATCH TP SCH (10:00)
[2018-07-24] MEDS ORDERED: ATENOLOL 50 MG TABLET PO SCH (10:00)
[2018-07-24] MEDS ORDERED: PROMETHAZINE HCL INJ 25 MG/1 ML VIAL IV PRN (10:00)
[2018-07-24] MEDS ORDERED: VENLAFAXINE HCL 37.5 MG CAP.SR.24H PO SCH (10:00)
--- NOTE | 2018-07-24 11:53 | PDOC TRANSFER SUMMARY ---
General Admission Date/PCP: 07/19/18 22:35 RUBI VENEGAS Resuscitation Status: Full Code - Transfer Diagnosis (1) Acute kidney injury (nontraumatic) Is this a current diagnosis for this admission?: Yes (2) Chronic pain Is this a current diagnosis for this admission?: Yes (3) Physical deconditioning Is this a current diagnosis for this admission?: Yes (4) Depression Is this a current diagnosis for this admission?: Yes - Transfer Medications Home Medications: Apixaban [Eliquis 5 mg Tablet] 5 mg PO Q12 07/20/18 Aspirin [Aspirin 81 mg Chewable Tablet] 81 mg PO DAILY 07/20/18 Atorvastatin Calcium [Lipitor 40 mg Tablet] 40 mg PO QHS 07/20/18 Insulin Glargine,Hum.rec.anlog [Basaglar Kwikpen U-100] 60 unit SQ DAILY Insulin Lispro [Humalog Insulin (Lispro) 100 unit/mL] 0 unit SQ .SLIDING SCALE 07/20/18 Liraglutide [Victoza 2-Jalil] 1.8 mg SQ DAILY 07/20/18 Magnesium Oxide [Mag-Ox 400 mg Tablet] 400 mg PO Q12 07/20/18 Metoprolol Succinate [Toprol Xl 50 mg Tab.sr] 50 mg PO DAILY 07/20/18 Sacubitril/Valsartan [Entresto 49 mg-51 mg Tablet] 1 tab PO Q12 07/20/18 Tamsulosin HCl [Flomax 0.4 mg Cap.sr] 0.4 mg PO ACSUPPER 07/20/18 Tizanidine HCl [Zanaflex] 2 mg PO Q8HP PRN 07/20/18 Transfer Medications: Current Medications Acetaminophen (Tylenol 325 Mg Tablet) 650 mg PO Q4HP PRN PRN Reason: MILD PAIN OR TEMP Stop: 08/21/18 02:14 Last Admin: 07/24/18 08:09 Dose: 650 mg Hydrocodone Bitart/Acetaminophen (Madison 5-325 Mg Tablet) 1 tab PO Q6HP PRN PRN Reason: FOR PAIN Stop: 07/27/18 01:56 Last Admin: 07/24/18 09:37 Dose: 1 tab Al Hydrox/Mg Hydrox/Simethicone (Maalox Plus Susp 30 Udcup) 30 ml PO Q6HP PRN PRN Reason: HEARTBURN Stop: 08/18/18 22:27 Apixaban (Eliquis 5 Mg Tablet) 5 mg PO BID [facility] Stop: 08/19/18 09:59 Last Admin: 07/24/18 09:37 Dose: 5 mg Aspirin (Ecotrin 81 Mg Ec Tablet) 81 mg PO DAILY [facility] Stop: 08/19/18 09:59 Last Admin: 07/24/18 09:37 Dose: 81 mg Atenolol (Tenormin 50 Mg Tablet) 50 mg PO Q12 [facility] Stop: 08/23/18 09:59 Last Admin: 07/24/18 09:47 Dose: 50 mg Atorvastatin Calcium (Lipitor 40 Mg Tablet) 40 mg PO QHS [facility] Stop: 08/23/18 21:59 Buspirone HCl (Buspar 10 Mg Tablet) 5 mg PO QAM [facility] Stop: 08/23/18 07:59 Last Admin: 07/24/18 08:08 Dose: 5 mg Buspirone HCl (Buspar 10 Mg Tablet) 10 mg PO QHS [facility] Stop: 08/22/18 21:59 Last Admin: 07/23/18 21:17 Dose: 10 mg Dextrose (Dextrose Inj 50% Syringe (25 Gm/50 Ml)) 12.5 gm IV PRN PRN; Protocol PRN Reason: FOR BG 50-69 IN ALERT PATIENT Stop: 08/18/18 22:39 Dextrose (Dextrose Inj 50% Syringe (25 Gm/50 Ml)) 25 gm IV PRN PRN; Protocol PRN Reason: PER PROTOCOL Stop: 08/18/18 22:39 Duloxetine HCl (Cymbalta 30 Mg Capsule.Dr) 30 mg PO DAILY [facility] Stop: 08/23/18 09:59 Last Admin: 07/24/18 09:37 Dose: 30 mg Glucagon (Glucagen Inj 1 Mg Vial) 1 mg IM PRN PRN; Protocol PRN Reason: Evaluate for BG < 70 Stop: 08/18/18 22:39 Glucose (Glutose 40% Gel 15 Gm Tube) 15 gm PO PRN PRN; Protocol PRN Reason: FOR BG 50-69 IN ALERT PATIENT Stop: 08/18/18 22:39 Glucose (Glutose 40% Gel 15 Gm Tube) 30 gm PO PRN PRN; Protocol PRN Reason: FOR BG < 50 IN ALERT PATIENT Stop: 08/18/18 22:39 Insulin Detemir (Levemir Insulin 300 Units/3 Ml Insuln.Pen) 66 unit SUBCUT DAILY [facility] Stop: 08/19/18 09:59 Last Admin: 07/24/18 09:47 Dose: 66 units Insulin Human Lispro (Humalog Insulin 100 Unit/1 Ml 3 Ml Vial) 0 - 12 unit SUBCUT ACHSP PRN; Protocol PRN Reason: PER PROTOCOL Stop: 08/18/18 22:39 Last Admin: 07/23/18 21:24 Dose: 8 units Lidocaine (Lidoderm 5% (700 Mg) Transdermal Patch) 2 patch TP DAILY [facility] Stop: 08/23/18 09:59 Last Admin: 07/24/18 09:46 Dose: 2 patch Magnesium Oxide (Mag-Ox 400 Mg Tablet) 400 mg PO DAILY [facility] Stop: 08/19/18 09:59 Last Admin: 07/24/18 09:37 Dose: 400 mg Mupirocin (Bactroban 2% Ointment 22 Gm) 1 applic TP TID [facility] Stop: 08/19/18 13:59 Last Admin: 07/24/18 09:41 Dose: 1 applic Nitroglycerin (Nitrostat 0.4 Mg (1/150 Gr) Tabs 25/Bottle) 1 tab SL PRN PRN PRN Reason: FOR CHEST PAIN Stop: 08/19/18 01:56 Patient Own Medication (Liraglutide [Victoza 2-Jalil]) 1.8 mg SQ .DAILY [facility] Stop: 08/19/18 09:59 Pharmacy Profile Note (Medication Communication Order) 1 each QHS [facility] Stop: 08/23/18 21:59 Pregabalin (Lyrica 50 Mg Capsule) 50 mg PO TID [facility] Stop: 08/19/18 13:59 Last Admin: 07/24/18 09:37 Dose: 50 mg Promethazine HCl (Phenergan 25 Mg Supp.Rect) 25 mg OR Q4HP PRN PRN Reason: FOR NAUSEA/VOMITING Stop: 08/18/18 22:27 Promethazine HCl (Phenergan Inj 25 Mg/1 Ml Vial) 25 mg IV Q4HP PRN PRN Reason: FOR NAUSEA/VOMITING Stop: 08/18/18 22:27 Sacubitril/Valsartan (Entresto 49 Mg/51 Mg Tablet) 1 tab PO Q12 [facility] Stop: 08/19/18 21:59 Last Admin: 07/24/18 09:38 Dose: 1 tab Senna/Docusate Sodium (Senna Plus Tablet) 1 each PO BIDP PRN PRN Reason: UNRESOLVED CONSTIPATION Stop: 08/22/18 10:31 Last Admin: 07/23/18 17:44 Dose: 1 each Sodium Chloride (Saline Flush 2.5 Ml Monoject Prefil Syrin) 2.5 ml IV Q8 [facility] Stop: 08/19/18 05:59 Last Admin: 07/24/18 05:36 Dose: Not Given Tamsulosin HCl (Flomax 0.4 Mg Cap.Sr) 0.4 mg PO DAILY [facility] Stop: 08/19/18 09:59 Last Admin: 07/24/18 09:38 Dose: 0.4 mg Tizanidine HCl (Zanaflex 4 Mg Tablet) 2 mg PO Q8HP PRN PRN Reason: MUSCLE SPASMS Stop: 08/19/18 18:47 Venlafaxine HCl (Effexor Xr 37.5 Mg Cap.Sr) 37.5 mg PO DAILY [facility] Stop: 08/23/18 09:59 Last Admin: 07/24/18 09:38 Dose: 37.5 mg - Allergies Allergies/Adverse Reactions: No Known Allergies Allergy (Verified 07/19/18 18:51) Hospital Course Hospital Course: Mr. Medina is a 62-year-old male with a past medical history of hypertension , atrial fibrillation, CAD with prior CABG, diabetes mellitus, diabetic neuropathy, chronic low back, and left hip pain and history of depression who was initially admitted with weakness and mild confusion and was found to have dehydration, hypercapnia and acute kidney injury. Patient's JEREMIAS promptly resolved with IV fluids with creatinine trending down to 0.8 from 1.46. He also was initially confused and was found to have elevated PCO2 in the 60s. There was concern that patient may have taken a lot of Madison at home causing the acute hypercapnia and confusion. during this course, patient complains he has been taking Madison at home and says he is "popping it like candy at home" due to his chronic hip, lower back and bilateral leg pain for the past 2 years. He ihas Madison 5/325 mg 1 q6 prn at home. Patient's brother says patient has been complaining at home that his chronic pain makes gives him passive suicidal ideation that patient has expressed "he does not want to continue living if he has continue to live with this pain". Patient refused to discuss this issue with the hospitalist hence psych was consulted. Psych deemed patient does not have active suicidal ideations. Home safety measures were also discussed by psych with family to ensure patient will not have access to potentially lethal medications or weapons at home. Patient says he is debilitated because of the pain hence will be going to rehab for physical therapy. He had a recent MRI done and also hip x-rays as part of the work-up for his pain. MRI only shows mild stenosis of the L4-L5 and L5-S1. Bilateral hip x-rays show osteoarthritis. Patient's pain is likely a combination of osteoarthritis, mild spinal stenosis and peripheral diabetic neuropathy. He complains is legs feel weak but on neuro exam, he has intact motor strength. After encounter this morning, patient was noted to be eating breakfast and was able to sit up on his own with no assistance. Patient has been on chronic opioids and likely has opioid tolerance. Explained in length with patient and family that his chronic pain issues will be managed with medications and physical therapy. He says he has already been referred to a pain specialist by his PCP. His home psychotropics have been revised per psych recommendations. Cymbalta was decreased to 30 mg daily which he will continue for 4 more days then will be discontinued. Lexapro was d/dilcia. Effexor was started at 37.5 mg daily and Buspar was also added at 5 mg in the AM and 10 mg at night. Physical Exam Vital Signs: Temp Pulse Resp BP Pulse Ox 98.1 F 66 20 148/73 H 99 07/24/18 07:45 07/24/18 07:45 07/24/18 07:45 07/24/18 07:45 07/24/18 08:50 Intake & Output 07/23/18 07/24/18 07/25/18 06:59 06:59 06:59 Intake Total 935 9738 Output Total 0332 6926 Balance -764 -927 Weight 210 lb 12.191 oz 200 lb 13.458 oz General appearance: PRESENT: no acute distress, well-developed, well-nourished Head exam: PRESENT: atraumatic, normocephalic Eye exam: PRESENT: conjunctiva pink, EOMI, PERRLA. ABSENT: scleral icterus Ear exam: PRESENT: normal external ear exam Mouth exam: PRESENT: moist, tongue midline Neck exam: ABSENT: carotid bruit, JVD, lymphadenopathy, thyromegaly Respiratory exam: PRESENT: clear to auscultation gerardo. ABSENT: rales, rhonchi, wheezes Cardiovascular exam: PRESENT: RRR. ABSENT: diastolic murmur, rubs, systolic murmur Pulses: PRESENT: normal dorsalis pedis pul GI/Abdominal exam: PRESENT: normal bowel sounds, soft. ABSENT: distended, guarding, mass, organolmegaly, rebound, tenderness Rectal exam: PRESENT: deferred Neurological exam: PRESENT: alert, awake, oriented to person, oriented to place , oriented to time, oriented to situation, CN II-XII grossly intact. ABSENT: motor sensory deficit Psychiatric exam: PRESENT: flat affect Results Laboratory Results: 07/20/18 05:55 07/24/18 05:16 07/24/18 05:16 Sodium 139.0 Potassium 5.2 H Chloride 104 Carbon Dioxide 29 Anion Gap 6 BUN 22 H Creatinine 1.01 Est GFR ( Amer) > 60 Est GFR (Non-Af Amer) > 60 Glucose 216 H Calcium 9.5 07/19/18 07/20/18 07/20/18 23:07 05:55 10:41 Troponin I < 0.012 < 0.012 < 0.012 NT-Pro-B Natriuret Pep 110 Impressions: Chest X-Ray 07/19/18 19:13 IMPRESSION: NO ACUTE RADIOGRAPHIC FINDING IN THE CHEST. Hip X-Ray 07/22/18 00:00 IMPRESSION: No acute findings.
[2018-07-24 12:26] VITALS: BP 146/72
[2018-07-24] MEDS: INSULIN LISPRO 100 UNIT/ML 3 ML VIAL SUBCUT PRN (12:29)
[2018-07-24] MEDS: SENNOSIDES/DOCUSATE 8.6-50 MG 1 EACH TABLET PO PRN (13:42)
[2018-07-24] MEDS ORDERED: PHARMACY COMMUNICATION ORDER MC SCH (22:00)
[2018-07-24] MEDS ORDERED: ATORVASTATIN CALCIUM 40 MG TABLET PO SCH (22:00)
== END 2018-07-24 17:54 | DRG 683 ==
LOC: ER 18:48 → EH 22:35 → OBSVTOIN 22:35 → 4N 07-21
PROVIDERS: ADMIT Internal Medicine; ATTEND Internal Medicine
DX: N17.9 Acute kidney failure, unspecified (principal); I45.89 Other specified conduction disorders; G89.29 Other chronic pain; F32.9 Major depressive disorder, single episode, unspecified; I25.10 Atherosclerotic heart disease of native coronary artery without angina pectoris; E11.40 Type 2 diabetes mellitus with diabetic neuropathy, unspecified; M54.5 Low back pain; R06.89 Other abnormalities of breathing; I50.9 Heart failure, unspecified; E78.00 Pure hypercholesterolemia, unspecified; I11.0 Hypertensive heart disease with heart failure; E11.9 Type 2 diabetes mellitus without complications; F41.1 Generalized anxiety disorder; E66.9 Obesity, unspecified; E86.0 Dehydration; L89.151 Pressure ulcer of sacral region, stage 1; I95.9 Hypotension, unspecified; I48.0 Paroxysmal atrial fibrillation; Z68.29 Body mass index [BMI] 29.0-29.9, adult; I25.2 Old myocardial infarction; Z79.01 Long term (current) use of anticoagulants; Z79.82 Long term (current) use of aspirin; Z79.899 Other long term (current) drug therapy; Z79.4 Long term (current) use of insulin; Z95.1 Presence of aortocoronary bypass graft; Z87.891 Personal history of nicotine dependence; Z80.1 Family history of malignant neoplasm of trachea, bronchus and lung; Z80.3 Family history of malignant neoplasm of breast; Z82.49 Family history of ischemic heart disease and other diseases of the circulatory system
CPT/HCPCS: 36415; 71045; 73522; 80048; 80053; 80307; 81001; 82272; 82550; 82803; 82962; 83036; 83605; 83735; 83880; 84100; 84484; 85025; 85610; 85730; 93005; 93010; 93306; 94640; 96360; 99285; G8978-GP; G8979-GP; G8987-GO; G8988-GO; J1170; J1815; J1885; J3490; J7620

== ENCOUNTER 2019-06-20 15:33 | Emergency (ER) | payer MEDICARE, OTHER ==
--- NOTE | 2019-06-20 16:03 | ER Document Report ---
ED Medical Screen (RME) - General Chief Complaint: Abdominal Pain Stated Complaint: LEFT SIDE ABDOMINAL PAIN Time Seen by Provider: 06/20/19 15:52 Primary Care Provider: RUBI VENEGAS MD [Primary Care Provider] - Follow up as needed Mode of Arrival: Wheelchair Information source: Patient Notes: 63-year-old male presented to ED for complaint of left flank pain off and on for the last month and a half. He states he has not been to the doctor for this because he was just trying to work it out. He states he has a history of a three-way CABG, renal failure a year ago, right leg does not work due to disc problems in his back, enlarged prostate, blood pressure cholesterol and diabetes. He states he does not smoke drink or do any drugs he is a former smoker and lives with his . I have greeted and performed a rapid initial assessment of this patient. A comprehensive ED assessment and evaluation of the patient, analysis of test results and completion of medical decision making process will be conducted by an additional ED providers. TRAVEL OUTSIDE OF THE [place] IN LAST 30 DAYS: No - Related Data Allergies/Adverse Reactions: No Known Allergies Allergy (Verified 06/20/19 15:34) Past Medical History - Past Medical History Cardiac Medical History: Reports: Hx Congestive Heart Failure - Unknown if systolic or diastolic, Hx Heart Attack - JUN 2017-ABL[place] in [place], Hx Hypercholesterolemia, Hx Hypertension Pulmonary Medical History: Denies: Hx Asthma Neurological Medical History: Denies: Hx Cerebrovascular Accident, Hx Seizures Endocrine Medical History: Reports: Hx Diabetes Mellitus Type 2 Renal/ Medical History: Denies: Hx Peritoneal Dialysis GI Medical History: Reports: Hx Ulcer - NOT SURE. Denies: Hx Hepatitis, Hx Hiatal Hernia Psychiatric Medical History: Reports: Hx Depression Infectious Medical History: Denies: Hx Hepatitis Past Surgical History: Reports: Hx Appendectomy, Hx Cardiac Surgery - CABG, Hx Coronary Artery Bypass Graft - CABG 3 in 2004, Hx Open Heart Surgery - 2004. Denies: Hx Pacemaker - Immunizations Hx Diphtheria, Pertussis, Tetanus Vaccination: Yes Physical Exam - Vital signs Vitals: Temp Pulse Resp BP Pulse Ox 97.5 F 99 20 148/75 H 98 06/20/19 15:39 06/20/19 15:39 06/20/19 15:39 06/20/19 15:39 06/20/19 15:39 Course - Vital Signs Vital signs: Temp Pulse Resp BP Pulse Ox 97.5 F 99 20 148/75 H 98 06/20/19 15:39 06/20/19 15:39 06/20/19 15:39 06/20/19 15:39 06/20/19 15:39 Doctor's Discharge - Discharge Referrals: RUBI VENEGAS MD [Primary Care Provider] - Follow up as needed
[2019-06-20 16:33] LABS: APPEARANCE,URINE CLEAR; BILIRUBIN,URINE NEGATIVE (NEGATIVE); COLOR,URINE YELLOW; GLUCOSE, URINE >=500 mg/dL (NEGATIVE); KETONES,URINE 20 mg/dL (NEGATIVE); LEUKOCYTE ESTERASE,URINE NEGATIVE (NEGATIVE); NITRITE,URINE NEGATIVE (NEGATIVE); PROTEIN,URINE NEGATIVE (NEGATIVE); URINE SPECIFIC GRAVITY 1.024; UROBILINOGEN,URINE NEGATIVE mg/dL (<2.0)
--- NOTE | 2019-06-20 16:36 | RADIOLOGY REPORT (SQ) ---
EXAM DESCRIPTION: CT ABD/PELVIS NO ORAL OR IV COMPLETED DATE/TIME: 06/20/2019 4:19 pm REASON FOR STUDY: left flank pain COMPARISON: None. TECHNIQUE: CT scan of the abdomen and pelvis performed without intravenous or oral contrast. Images reviewed with lung, soft tissue, and bone windows. Reconstructed coronal and sagittal MPR images revi ewed. All images stored on PACS. All CT scanners at this facility use dose modulation, iterative reconstruction, and/or weight based d osing when appropriate to reduce radiation dose to as low as reasonably achievable (ALARA). [facility]: Dose Right [facility]: CareDose [facility]: Dose Right [facility]: Teradose 4D [facility]: [employer] RADIATION DOSE: 609.9mGy. LIMITATIONS: None. FINDINGS: LOWER CHEST: Linear densities left lung base could represent chronic scarring. Chronic le ft pleural calcification NON-CONTRASTED LIVER, SPLEEN, ADRENALS: Liver: No abnormality. Spleen: No abnormality. Adrenals: No abnormality. PANCREAS: No abnormality. GALLBLADDER: No abnormality. RIGHT KIDNEY AND URETER: No renal or ureteral calculi. LEFT KIDNEY AND URETER: No renal or ureteral calculi. AORTA AND RETROPERITONEUM: Atherosclerotic karon nge of the abdominal aorta and iliac vessels. Sm. No retroperitoneal masses or adenopathy. BOWEL AND PERITONEAL CAVITY: No obvious masses or inflammatory changes. No free fluid. APPENDIX: Absent. PELVIS, BLADDER, AND ABDOMINAL WALL:Urinary bladder: Thick-walled. Clinical correlation for possibl e cystitis or mucosal lesion would be useful. . Prostate seminal vesicles: No abnormality. BONES: Lumbar spondylosis. IMPRESSION: 1. Chronic scarring left lung base. Chronic left pleural calcification. 2. Thick wal led urinary bladder. Clinical correlation for mucosal abnormality or cystitis. COMMENT: Quality ID # [id number]: Final reports with documentation of one or more dose reduction techniques (e.g., Automated exposure control, adjustment of the mA and/or kV according to patient size, use of iterative reconstruction technique) TECHNICAL DOCUMENTATION: JOB ID: [id number]- All Rights Reserved Reading location - IP/workstation name: [email or web address]
[2019-06-20 17:00] LABS: ABSOLUTE BASOPHILS # (AUTO) 0.1 10^3/uL (0.0-0.2); ABSOLUTE EOSINOPHILS # (AUTO) 0.2 10^3/uL (0.0-0.6); ABSOLUTE LYMPHOCYTES (AUTO) 1.7 10^3/uL (0.5-4.7); ABSOLUTE MONOCYTES (AUTO) 0.7 10^3/uL (0.1-1.4); ABSOLUTE NEUT (AUTO) 5.8 10^3/uL (1.7-8.2); BASOPHILS % (AUTO) 0.9 % (0-2); EOSINOPHILS % (AUTO) 1.8 % (0-6); HEMATOCRIT 41.3 % (37.9-51.0); HEMOGLOBIN 13.9 g/dL (13.5-17.0); LYMPHOCYTES % (AUTO) 19.8 % (13-45); MEAN CORPUSCULAR HEMOGLOBIN 30.7 pg (27.0-33.4); MEAN CORPUSCULAR HGB CONC 33.7 g/dL (32.0-36.0); MEAN CORPUSCULAR VOLUME 91 fl (80-97); MONOCYTES % (AUTO) 8.7 % (3-13); PLATELET COUNT 239 10^3/uL (150-450); RED BLOOD COUNT 4.53 10^6/uL (4.35-5.55); RED CELL DISTRIBUTION WIDTH 14.3 % (11.5-14.0); SEGMENTED NEUTROPHILS % (AUTO) 68.8 % (42-78); TOTAL CELLS COUNTED % (AUTO) 100 %; WHITE BLOOD COUNT 8.5 10^3/uL (4.0-10.5)
--- NOTE | 2019-06-20 17:13 | ER Document Report ---
ED GI/ - General Chief Complaint: Abdominal Pain Stated Complaint: LEFT SIDE ABDOMINAL PAIN Time Seen by Provider: 06/20/19 15:52 Primary Care Provider: RUBI VENEGAS MD [Primary Care Provider] - Follow up as needed Mode of Arrival: Wheelchair Information source: Patient Notes: Patient is a 63-year-old male presented to the emergency department with 6-week history of left-sided abdominal pain. Patient reports he has chronic constipation issues due to taking [place] 4 times daily. He denies any nausea, vomiting, diarrhea or fevers with this pain. He reports the pain is intermittent and severe in nature. He states when the pain comes on it feels like a sharp pressure. He reports heat helps and the [place] helps. He reports when the pain is severe he is screaming out in pain. TRAVEL OUTSIDE OF THE [place] IN LAST 30 DAYS: No - Related Data Allergies/Adverse Reactions: No Known Allergies Allergy (Verified 06/20/19 15:34) Past Medical History - General Information source: Patient - Social History Smoking Status: Former Smoker Frequency of alcohol use: None Drug Abuse: None Family History: Reviewed & Not Pertinent Patient has suicidal ideation: No Patient has homicidal ideation: No - Past Medical History Cardiac Medical History: Reports: Hx Congestive Heart Failure - Unknown if systolic or diastolic, Hx Heart Attack - JUN 2017-ABLATION in [place], Hx Hypercholesterolemia, Hx Hypertension Pulmonary Medical History: Denies: Hx Asthma Neurological Medical History: Denies: Hx Cerebrovascular Accident, Hx Seizures Endocrine Medical History: Reports: Hx Diabetes Mellitus Type 2 Renal/ Medical History: Denies: Hx Peritoneal Dialysis GI Medical History: Reports: Hx Ulcer - NOT SURE. Denies: Hx Hepatitis, Hx Hiatal Hernia Psychiatric Medical History: Reports: Hx Depression Infectious Medical History: Denies: Hx Hepatitis Past Surgical History: Reports: Hx Appendectomy, Hx Cardiac Surgery - CABG, Hx Coronary Artery Bypass Graft - CABG 3 in 2004, Hx Open Heart Surgery - 2004. Denies: Hx Pacemaker - Immunizations Hx Diphtheria, Pertussis, Tetanus Vaccination: Yes Review of Systems - Review of Systems Constitutional: No symptoms reported EENT: No symptoms reported Cardiovascular: No symptoms reported Respiratory: No symptoms reported Gastrointestinal: Abdominal pain. denies: Diarrhea, Nausea, Vomiting, Constipation Genitourinary: No symptoms reported Male Genitourinary: No symptoms reported Musculoskeletal: No symptoms reported Skin: No symptoms reported Hematologic/Lymphatic: No symptoms reported Neurological/Psychological: No symptoms reported Physical Exam - Vital signs Vitals: Temp Pulse Resp BP Pulse Ox 97.5 F 99 20 148/75 H 98 06/20/19 15:39 06/20/19 15:39 06/20/19 15:39 06/20/19 15:39 06/20/19 15:39 - Notes Notes: PHYSICAL EXAMINATION: GENERAL: Well-appearing, well-nourished and in no acute distress. HEAD: Atraumatic, normocephalic. EYES: Pupils equal round and reactive to light, extraocular movements intact, sclera anicteric, conjunctiva are normal. ENT: Nares patent, oropharynx clear without exudates. Moist mucous membranes. NECK: Normal range of motion, supple without lymphadenopathy LUNGS: Breath sounds clear to auscultation bilaterally and equal. No wheezes rales or rhonchi. HEART: Regular rate and rhythm without murmurs ABDOMEN: Soft, nontender, nondistended abdomen. No guarding, no rebound. No masses appreciated. Musculoskeletal: Normal range of motion, no pitting or edema. No cyanosis. NEUROLOGICAL: Cranial nerves grossly intact. Normal speech, normal gait. Normal sensory, motor exams PSYCH: Normal mood, normal affect. SKIN: Warm, Dry, normal turgor, no rashes or lesions noted. Course - Re-evaluation Re-evalutation: Laboratory 06/20/19 06/20/19 06/20/19 16:00 16:35 16:35 WBC 8.5 RBC 4.53 Hgb 13.9 Hct 41.3 MCV 91 MCH 30.7 MCHC 33.7 RDW 14.3 H Plt Count 239 Lymph % (Auto) 19.8 [place] % (Auto) 8.7 Eos % (Auto) 1.8 Baso % (Auto) 0.9 Absolute Neuts (auto) 5.8 Absolute Lymphs (auto) 1.7 Absolute Monos (auto) 0.7 Absolute Eos (auto) 0.2 Absolute Basos (auto) 0.1 Seg Neutrophils % 68.8 Sodium 142.2 Potassium 4.3 Chloride 101 Carbon Dioxide 32 H Anion Gap 9 BUN 26 H Creatinine 1.47 H Est GFR ( Amer) 59 L Est GFR (MDRD) Non-Af 49 L Glucose 275 H Calcium 10.7 H Total Bilirubin 0.5 Direct Bilirubin 0.2 Neonat Total Bilirubin Not Reportable Neonat Direct Bilirubin Not Reportable Neonat Indirect Bili Not Reportable AST 21 ALT 21 Alkaline Phosphatase 113 Total Protein 6.7 Albumin 4.1 Lipase 101.6 Urine Color YELLOW Urine Appearance CLEAR Urine pH 5.0 Ur Specific [place] 1.024 Urine Protein NEGATIVE Urine Glucose (UA) >=500 H Urine Ketones 20 H Urine Blood NEGATIVE Urine Nitrite NEGATIVE Urine Bilirubin NEGATIVE Urine Urobilinogen NEGATIVE Ur Leukocyte Esterase NEGATIVE Urine WBC (Auto) 1 Urine RBC (Auto) 0 U Hyaline Cast (Auto) 3 Urine Mucus (Auto) RARE Urine Ascorbic Acid NEGATIVE Abdomen/Pelvis CT 06/20/19 16:00 IMPRESSION: 1. Chronic scarring left lung base. Chronic left pleural calcification. 2. Thick walled urinary bladder. Clinical correlation for mucosal abnormality or cystitis. Patient's abdomen was soft and nontender while here in the emergency department. He had no episodes of pain. He did had an elevated creatinine of 1.47. I did discuss his case with Dr. Toure. I will give patient 1 L of IV fluids and discharge him home with instructions to take MiraLAX and Bentyl. Patient did verbalize understanding and agreement with this plan. And copy of his CT was given to him for review by his primary care physician. - Vital Signs Vital signs: Temp Pulse Resp BP Pulse Ox 98.0 F 82 16 160/79 H 100 06/20/19 19:41 06/20/19 19:41 06/20/19 19:41 06/20/19 19:41 06/20/19 19:41 - Laboratory Result Diagrams: 06/20/19 16:35 06/20/19 16:35 Laboratory results interpreted by me: 06/20/19 06/20/19 06/20/19 16:00 16:35 16:35 RDW 14.3 H Carbon Dioxide 32 H BUN 26 H Creatinine 1.47 H Est GFR ( Amer) 59 L Est GFR (MDRD) Non-Af 49 L Glucose 275 H Calcium 10.7 H Urine Glucose (UA) >=500 H Urine Ketones 20 H Discharge - Discharge Clinical Impression: Left sided abdominal pain of unknown cause, Abdominal gas pain Constipation Qualifiers: Constipation type: unspecified constipation type Qualified Code(s): K59.00 - Constipation, unspecified Condition: Stable Disposition: HOME, SELF-CARE Additional Instructions: Gas Pains In adults, abdominal pain that comes and goes without an explanation is a common problem. It's usually not due to disease. Recurring abdominal pain can be caused by low-grade constipation or gas and can be quite severe at times. Tests can look for bladder infection, intestinal blockage, and other serious causes of abdominal pain. A healthy, varied diet can help. A daily stool "bulking agent" such as metamucil can be worth a try. Regular exercise and sleep schedules are good for the bowels. Call the doctor or return if there is increasing pain, fever, severe vomiting or diarrhea, or other significant change. Your creatinine was elevated today. You were given a dose of IV fluids here to try to help with this. You are being given medications to help with gas pains. Your blood work and CT scan did not give us an exact cause of the intermittent left-sided abdominal pain however given the history of your constipation issues most likely this pain is being caused by gas pain. Please take the medications as prescribed and follow-up with your primary care provider. A copy of your CT scan has been included in your discharge papers for your primary care providers review. Prescriptions: Dicyclomine HCl [Bentyl 20 mg Tablet] 20 mg PO QID #40 tablet Polyethylene Glycol 3350 [Miralax] 1 cap PO DAILY #527 powder Referrals: RUBI VENEGAS MD [Primary Care Provider] - Follow up as needed
[2019-06-20 17:20] LABS: ALBUMIN 4.1 g/dL (3.5-5.0); ALKALINE PHOSPHATASE 113 U/L (38-126); ANION GAP 9 (5-19); ASPARTATE AMINO TRANSFERASE 21 U/L (17-59); BILIRUBIN,DIRECT 0.2 mg/dL (0.0-0.4); BILIRUBIN,TOTAL 0.5 mg/dL (0.2-1.3); BLOOD UREA NITROGEN 26 mg/dL (7-20); CALCIUM 10.7 mg/dL (8.4-10.2); CARBON DIOXIDE 32 mmol/L (22-30); CHLORIDE 101 mmol/L (98-107); GLUCOSE 275 mg/dL (75-110); POTASSIUM 4.3 mmol/L (3.6-5.0); TOTAL PROTEIN 6.7 g/dL (6.3-8.2)
[2019-06-20] MEDS ORDERED: NORMAL SALINE 1000 ML 1,000 ML IV ONE (17:58)
[2019-06-20 19:45] VITALS: BP 160/79
== END 2019-06-20 19:59 | disposition home or self-care (01) ==
LOC: ER 15:33
DX: R10.9 Unspecified abdominal pain (principal); K59.00 Constipation, unspecified; R14.1 Gas pain; I50.9 Heart failure, unspecified; E78.00 Pure hypercholesterolemia, unspecified; I11.0 Hypertensive heart disease with heart failure; E11.9 Type 2 diabetes mellitus without complications; Z95.1 Presence of aortocoronary bypass graft; I25.2 Old myocardial infarction
CPT/HCPCS: 99284; 96360; 36415; 83690; 85025; 80053; 81001; 74176; J7030